=== PATIENT | female | born 1995 | race Caucasian/White ===

== ENCOUNTER 2016-12-22 19:47 | Emergency (ER) | payer OTHER ==
[2016-12-22 20:32] VITALS: TEMP 97.4
[2016-12-22] MEDS ORDERED: LIDOCAINE 4% CREAM 5 GM TUBE TOPICAL ONE (21:19)
--- NOTE | 2016-12-22 21:36 | ED ---
General Adult HPI - General Chief complaint: Recheck/Abnormal Lab/Rx Stated complaint: hemorrhoids Time Seen by Provider: 12/22/16 20:26 Source: patient Mode of arrival: ambulatory Limitations: no limitations - History of Present Illness Initial comments: Patient is a 21-year-old female, 33 weeks who presents with a chief complaint of rectal pain. Patient states that she has a history of hemorrhoids. He states that he has a sharp pain in her rectal area that is worse with standing, straining, and sitting. Alleviating factors are positional. Timing is constant. Patient denies any fevers, chills, nausea, vomiting. She denies any blood in her stool. - Related Data Home Medications Medication Instructions Recorded Confirmed FLUoxetine HCL [PROzac] 20 mg PO DAILY 12/06/16 12/22/16 Previous Rx's Medication Instructions Recorded Hydrocortisone Pr Cream 1 applic RECTAL BID #1 tube 12/22/16 [Proctosol-Hc 2.5%] Lidocaine 4% Cream [Lmx 4] 1 applic TOPICAL QID #1 kit 12/22/16 Allergies Allergy/AdvReac Type Severity Reaction Status Date / Time acetaminophen [From [place]] AdvReac Nausea & Verified 12/22/16 20:37 Vomiting/HALLUCINATIONS hydrocodone [From [place]] AdvReac Nausea & Verified 12/22/16 20:37 Vomiting/HALLUCINATIONS Review of Systems ROS Statement: Those systems with pertinent positive or pertinent negative responses have been documented in the HPI. ROS Other: All systems not noted in ROS Statement are negative. Constitutional: Denies: fever Eyes: Denies: vision change ENT: Denies: congestion Respiratory: Denies: cough Cardiovascular: Denies: chest pain Endocrine: Denies: fatigue Gastrointestinal: Reports: other (Rectal pain) Genitourinary: Denies: dysuria Skin: Denies: rash Neurological: Denies: headache Past Medical History Past Medical History: Asthma, GERD/Reflux, Osteoarthritis (OA) Additional Past Medical History / Comment(s): ibs, migraines History of Any Multi-Drug Resistant Organisms: None Reported Past Surgical History: Tonsillectomy Past Psychological History: Anxiety, Depression Smoking Status: Current every day smoker Past Alcohol Use History: None Reported Past Drug Use History: None Reported General Exam Limitations: no limitations General appearance: alert, in no apparent distress Head exam: Present: atraumatic, normocephalic Respiratory exam: Present: normal lung sounds bilaterally Cardiovascular Exam: Present: regular rate, normal rhythm, normal heart sounds GI/Abdominal exam: Present: soft, other (Patient hasn't appropriately gravid uterus). Absent: distended, tenderness Rectal exam: Present: hemorrhoids (Patient has a large thrombosed hemorrhoid at the 9 o'clock position) Neurological exam: Present: alert, oriented X3 Psychiatric exam: Present: normal affect, normal mood Skin exam: Present: warm, dry, intact Course Vital Signs 12/22/16 12/22/16 19:52 20:27 Temperature 98.9 F 97.4 F L Pulse Rate 114 H 109 H Respiratory 20 18 Rate Blood Pressure 116/72 114/65 O2 Sat by Pulse 98 98 Oximetry Medical Decision Making - Medical Decision Making Patient presents with a chief complaint of rectal pain. History and physical examination are consistent with a thrombosed hemorrhoid. I discussed treatment options with the patient, and offered medical management versus thrombectomy. At this time, patient would like to proceed with medical management. She was prescribed lidocaine ointment, and Proctosol ointment. She is instructed to use warm sitz baths. Patient is instructed to use Tylenol for pain, and to avoid direct pressure to the area. At this time, patient is stable for discharge, and follow-up with primary care. At this time, all questions are answered as my ability, patient was given explicit signs and symptoms that should prompt return visit to the emergency department. Disposition Clinical Impression: Hemorrhoids Disposition: HOME SELF-CARE Condition: Good Instructions: Hemorrhoids (ED) Prescriptions: Hydrocortisone Pr Cream [Proctosol-Hc 2.5%] 1 applic RECTAL BID #1 tube Lidocaine 4% Cream [Lmx 4] 1 applic TOPICAL QID #1 kit Referrals: Steph Cabezas MD [Primary Care Provider] - 1-2 days
[2016-12-22 21:47] VITALS: BP 107/66; PULSE 95; RESP 16
== END 2016-12-22 21:46 | disposition home or self-care (01) ==
LOC: EC 19:47
DX: O22.43 Hemorrhoids in pregnancy, third trimester (principal); O99.343 Other mental disorders complicating pregnancy, third trimester; F32.9 Major depressive disorder, single episode, unspecified; F41.9 Anxiety disorder, unspecified; O99.333 Smoking (tobacco) complicating pregnancy, third trimester; F17.200 Nicotine dependence, unspecified, uncomplicated; Z79.899 Other long term (current) drug therapy; Z88.5 Allergy status to narcotic agent; Z88.6 Allergy status to analgesic agent; Z3A.33 33 weeks gestation of pregnancy
CPT/HCPCS: 99282

== ENCOUNTER 2016-12-25 04:35 | Outpatient (CLI) | payer OTHER ==
[2016-12-25 05:11] LABS: Appearance,Urine Cloudy (Clear); Bilirubin,Urine Negative (Negative); Glucose,Urine (UA) Negative (Negative); Ketones,Urine Negative (Negative); Leukocyte Esterase,Urine Negative (Negative); Mucus,Urine Occasional /hpf; Nitrite,Urine Negative (Negative); PH, Urine 6.5 (5.0-8.0); Particle Count 6876; Protein,Urine 1+ (Negative); RBC,Urine 1 /hpf (0-5); Specific Gravity,Urine 1.027 (1.001-1.035); Squamous Epithelial Cell,Urine 11 /hpf (0-4); UA Billing (MACRO vs. MICRO) MICRO; WBC,Urine 2 /hpf (0-5)
[2016-12-25 07:41] VITALS: BP 120/69; PULSE 93; RESP 16; TEMP 97
--- NOTE | 2017-01-28 13:50 | P.MSEPDOC ---
Presenting Problems - Arrival Data Date of Arrival on Unit: 12/25/16 Time of Arrival on Unit: 04:35 Mode of Transport: Wheelchair - Complaint OB-Reason for Admission/Chief Complaint: Observation/Evaluation Comment: right sided pain 10/20 Medical History - Information : 1 Para: 0 Term: 0 : 0 Abortions: Spontaneous or Elective: 0 Number of Living Children: 0 - Gestational Age Gestational Age by SRUTHI (wks/days): 33 Weeks and 2 Days - History Complications: Smoker Review of Systems - Review of Systems Constitutional: No problems Breast: No problems ENT: No problems Cardiovascular: No problems Respiratory: No problems Gastrointestinal: No problems Genitourinary: No problems Musculoskeletal: No problems Neurological: No problems Skin: No problems Vital Signs - Temperature Temperature: 97 F Temperature Source: Tympanic - Pulse Right Brachial Pulse Rate: 93 Pulse Assessment Method: Automatic Cuff - Respirations Respiratory Rate: 16 Oxygen Delivery Method: Room Air O2 Sat by Pulse Oximetry: 99 - Blood Pressure Right Arm Blood Pressure: 120/69 Blood Pressure Mean: 86 Blood Pressure Source: Automatic Cuff Medical Screen Scoring (Pre) - Cervical Exam Dilation: Exam Deferred Effacement: Exam Deferred - Uterine Contractions Frequency: N/A Duration: N/A Intensity: N/A - Maternal Vital Signs Maternal Temperature: N/A Maternal Respirations: N/A - Maternal Trauma Maternal Trauma: N/A - Assessment Baseline FHR: 125 Heart Rate - NICHD Category: Category I (Normal) = 0 - Total Score Total Score (Pre): 0 - Level of Risk Level of Risk: Low (0-5) Physician Notification (Pre) - Physician Notified Physician Notified Date: 12/25/16 Physician Notified Time: 05:33 Spoke With: curtis New Order Received: Yes - Notification Comment Comment: d/c home, follow up as scheduled with Dr. Roque Disposition - Disposition OB Disposition: Discharge to home Discharge Date: 12/25/16 Discharge Time: 05:35 I agree with the RN Medical Screening Exam: Yes Risk & Benefit of care provided described in d/c instruction: Yes Diagnosis: RELATED CONDITIONS, UNSPECIFIED, THIRD TRIMESTER
== END 2016-12-25 05:35 | disposition home or self-care (01) ==
LOC: FBPOP 04:35
PROVIDERS: ATTEND Obstetrics & Gynecology
DX: O26.93 Pregnancy related conditions, unspecified, third trimester (principal); Z3A.33 33 weeks gestation of pregnancy
CPT/HCPCS: 59025; 81001; G0463; 99213

== ENCOUNTER 2017-01-24 06:08 | Inpatient (IN) | payer OTHER ==
[2017-01-24] MEDS ORDERED: OXYTOCIN 10 UNIT/ML 1 ML VIAL IM PRN (07:14)
[2017-01-24] MEDS ORDERED: METHYLERGONOVINE 0.2 MG/ML 1 ML AMP IM PRN (07:14)
[2017-01-24] MEDS ORDERED: LIDOCAINE 1% (PF) 10 MG/ML (30 ML SDV) SQ PRN (07:14)
[2017-01-24] MEDS ORDERED: TERBUTALINE 1 MG/ML VIAL SQ PRN (07:14)
[2017-01-24] MEDS ORDERED: CARBOPROST TROMETHAMINE 250 MCG/ML 1 ML AMP IM PRN (07:14)
[2017-01-24] MEDS ORDERED: OXYTOCIN 20 UNITS/1000 ML NS 1,000 ML IV SCH (07:15)
[2017-01-24] MEDS: LACTATED RINGERS 1,000 ML IV SCH ×2 (07:20→10:25)
[2017-01-24] MEDS ORDERED: fentaNYL (PF) 50 MCG/ML 5 ML AMP ONE (07:45)
[2017-01-24] MEDS ORDERED: SODIUM CHLORIDE 0.9% 100 ML BAG ONE (07:45)
[2017-01-24] MEDS ORDERED: BUPIVACAINE (PF) 0.25% 30 ML VIAL ONE (07:45)
[2017-01-24 08:02] LABS: Basophils # (A) 0.1 k/uL (0-0.2); Basophils % (A) 1 %; CH 32.6; CHCM 33.3; Eosinophils # (A) 0.5 k/uL (0-0.7); Eosinophils % (A) 2 %; HCT 36.4 % (34.0-46.0); HDW 2.72; HGB 11.8 gm/dL (11.4-16.0); Luc # (Auto) 0.57; Luc % (Auto) 3; Lymphocytes # (A) 3.9 k/uL (1.0-4.8); Lymphocytes % (A) 17 %; MCH 31.9 pg (25.0-35.0); MCHC 32.3 g/dL (31.0-37.0); MCV 98.7 fL (80.0-100.0); Mean Platelet Volume 9.9; Monocytes # (A) 1.6 k/uL (0-1.0); Monocytes % (A) 7 %; Neutrophils # (A) 16.2 k/uL (1.3-7.7); Neutrophils % (A) 71 %; RBC 3.69 m/uL (3.80-5.40); RDW 14.1 % (11.5-15.5); WBC 22.8 k/uL (3.8-10.6); WBC (Perox) 23.26
[2017-01-24] MEDS ORDERED: BUPIVACAINE (PF) 0.25% 25 ML, fentaNYL (PF) 200 MCG in SODIUM CHLORIDE 0.9% 71 ML EPIDURAL ONE (08:05)
--- NOTE | 2017-01-24 09:12 | P.HPOB ---
History of Present Illness H&P Date: 01/24/17 This is a 21-year-old white female 1 para 0 EDC 02/10/2017 at 37-4/7 weeks' gestation. Patient presented to labor and delivery with strong regular uterine contractions, her water broke in the triage area, clear fluid at 0649 hours. Fetus is been active throughout the . Past medical history significant for acid reflux, anxiety, arthritis, asthma, chronic constipation and a benign bowel mass, depression, irritable bowel syndrome, migraine headaches. Past surgical history colonoscopy with Dr. waddell. Tonsillectomy. [place] teeth extracted. Current medications Colace 100 mg tablets once daily, vitamins daily, MiraLAX 17 g once daily, Zoloft 50 mg once daily. ALLERGIES include [place] to which reports chronic migraines. Family history significant for acid reflux, arthritis, autism, bipolar disorder , endometriosis, fibromyalgia, cardiac issues unspecified, hypercholesterolemia , hypertension, height her glycemia, osteoporosis, stroke. Social history patient is currently single, father of the baby is not her ex spells. She smokes one half pack per day tobacco, denies alcohol or drug use. history blood type is A+, rubella status immune. VDRL testing, urine culture, gonorrhea and chlamydia cultures, HIV testing, hepatitis B surface antigen, [place] strep cultures all negative. Pap smear revealing low-grade change. On exam this is a pleasant young female, 5 foot 1 inch, 163 pounds, vital signs are stable and patient is afebrile. The general physical exam is within normal limits. Chest is clear in all camacho. Extremities reveal no edema. Obvious fluid is noted on the perineal body, clear and non-malodorous. Cervix is currently 5-6 cm dilated, 100% effaced, -1 station, vertex presentation. heart rate is consistent with reactive NST. Impression: 37-4/7 weeks intrauterine , here in active spontaneous labor. All signs currently reassuring. Plan: Close maternal and surveillance. Epidural has been placed per her request. Anticipate normal spontaneous vaginal delivery. Review of Systems Negative except as in HPI Past Medical History Past Medical History: Asthma, GERD/Reflux, Osteoarthritis (OA) Additional Past Medical History / Comment(s): ibs, migraines History of Any Multi-Drug Resistant Organisms: None Reported Past Surgical History: Tonsillectomy Past Anesthesia/Blood Transfusion Reactions: No Reported Reaction Past Psychological History: Anxiety, Depression Smoking Status: Current every day smoker Past Alcohol Use History: None Reported Past Drug Use History: None Reported - Past Family History Sister(s) Family Medical History: Fibromyalgia Medications and Allergies Home Medications Medication Instructions Recorded Confirmed Type No Known Home Medications [No 01/23/17 01/24/17 History Known Home Medications] Allergies Allergy/AdvReac Type Severity Reaction Status Date / Time hydrocodone [From [place]] AdvReac Nausea & Verified 01/24/17 06:10 Vomiting/HALLUCINATIONS Exam - Vital Signs Vital signs: Vital Signs Temp Pulse Resp BP Pulse Ox 01/24/17 06:11 97.4 F L 96 16 122/83 100 Intake and Output 01/23/17 01/24/17 01/24/17 22:59 06:59 14:59 Other: Weight 73.936 kg 73.936 kg Patient Weight 01/25/17 06:59 Weight 73.936 kg See dictation, please Results Result Diagrams: 01/24/17 07:15 Abnormal Lab Results - Last 24 Hours (Table) 01/24/17 Range/Units 07:15 WBC 22.8 H (3.8-10.6) k/uL RBC 3.69 L (3.80-5.40) m/uL Neutrophils # 16.2 H (1.3-7.7) k/uL Monocytes # 1.6 H (0-1.0) k/uL Assessment and Plan Plan: Close maternal and surveillance. Anticipate normal spontaneous vaginal delivery. Time with Patient: Less than 30
[2017-01-24 09:46] VITALS: BMI 30.8
[2017-01-24] MEDS ORDERED: WITCH HAZEL 1 EACH MED..PAD TOPICAL PRN (11:30)
[2017-01-24] MEDS ORDERED: BENZOCAINE/MENTHOL SPRAY 1 GM/SPRAY AEROSOL TOPICAL PRN (11:30)
[2017-01-24] MEDS ORDERED: diphenhydrAMINE ELIXIR 25 MG/10 ML CUP PO PRN (11:30)
[2017-01-24] MEDS ORDERED: LANOLIN CREAM 5 GM TUBE TOPICAL PRN (11:30)
[2017-01-24] MEDS ORDERED: ACETAMINOPHEN TAB 325 MG TAB PO PRN (11:30)
[2017-01-24] MEDS ORDERED: diphenhydrAMINE 50 MG/ML 1 ML VIAL IVP PRN ×2 (11:30)
[2017-01-24] MEDS ORDERED: HYDROCORTISONE 2.5% RECTAL CREAM 30 GM TUBE RECTAL PRN (11:30)
[2017-01-24] MEDS ORDERED: diphenhydrAMINE 25 MG CAP PO PRN (11:30)
[2017-01-24] MEDS ORDERED: ZOLPIDEM 5 MG TAB PO PRN (11:30)
[2017-01-24] MEDS ORDERED: SIMETHICONE 80 MG CHEWABLE PO PRN (11:30)
[2017-01-24] MEDS ORDERED: diphenhydrAMINE 50 MG CAP PO PRN (11:30)
--- NOTE | 2017-01-24 11:30 | P.PROBDLV ---
Vaginal Delivery Note - . Vaginal Delivery Note: This is a 21-year-old white female 1 para 0 EDC 02/10/2017 at 37-4/7 weeks' gestation. Patient presented with spontaneous amniorrhexis, in active labor, clear fluid. was essentially unremarkable, group B strep cultures negative, rubella status immune, blood type A+. Please see my dictated history and physical for details. Epidural was requested and placed per the anesthesia staff. Patient progressed well through the first stage of labor was judged to be completely dilated at 1105 hrs. She began the second stage of labor at that time. The perineal body was prepped and draped in usual sterile fashion. With excellent maternal expulsive efforts the 's head delivered occiput anterior and restituted accordingly. There was no nuchal cord noted. The right or anterior shoulder was gently delivered from underneath the pubic symphysis at which time the oropharynx, nasopharynx, and external nares were bulb suctioned on the perineal body. Patient was officially delivered of a liveborn male infant at 1112 hours. Umbilical cord was doubly clamped and ligated, he was handed to waiting nurses for evaluation where scores of 8 and 9 at one and 5 minutes respectively were given. The placenta delivered spontaneously, it was inspected and noted to be intact with trivascular cord at 1115 hours. The uterus is then massaged. Inspection of the cervix, vagina, perineum and periurethral areas revealed a superficial perineal laceration, no bleeding, no stitches were deemed necessary. Fundus is firm and in the midline, symmetric and 18 week size upon completion of delivery. Infant weighs 6 lbs. 0 oz. or 2730 g. She is requesting circumcision for her infant son.
[2017-01-24] MEDS: IBUPROFEN 600 MG TAB PO PRN ×2 (11:53→18:18)
[2017-01-24] MEDS ORDERED: NICOTINE 21MG/24HR PATCH TRANSDERM STA (14:08)
[2017-01-24] MEDS: Acetaminophen-Codeine 300-30mg TAB PO PRN ×2 (16:13→20:16)
[2017-01-24] MEDS: SENNOSIDES-DOCUSATE SODIUM 1 EACH TAB PO SCH (20:16)
[2017-01-24] MEDS: FAMOTIDINE 20 MG TAB PO SCH (22:27)
[2017-01-25] MEDS ORDERED: SENNOSIDES-DOCUSATE SODIUM 1 EACH TAB PO ONE (00:30)
[2017-01-25] MEDS ORDERED: IBUPROFEN 600 MG TAB PO ONE (00:30)
[2017-01-25] MEDS: Acetaminophen-Codeine 300-30mg TAB PO PRN ×2 (04:25→13:55)
[2017-01-25] MEDS: IBUPROFEN 600 MG TAB PO PRN (08:36)
[2017-01-25] MEDS: SENNOSIDES-DOCUSATE SODIUM 1 EACH TAB PO SCH (08:36)
--- NOTE | 2017-01-25 09:43 | P.DS ---
Providers Date of admission: 01/24/17 07:02 Expected date of discharge: 01/25/17 Attending physician: Consuelo Roque [facility] Course: This is a 21-year-old white female 1 para 0 EDC 02/10/2017 at 37-4/7 weeks' gestation. Patient presented with spontaneous amniorrhexis, clear fluid , in active early labor. was remarkable for group B strep cultures negative, rubella status immune, blood type A positive. Please see dictated history and physical for details. Patient progressed well through labor with the aid of an epidural. She went on to deliver spontaneously a liveborn male , scores 8 and 9 at one and 5 minutes respectively. Infant weighed 2730 g, or 6 lbs. 0 oz. No lacerations on the perineal body needing repair. Estimated blood loss 300 mL' s. Please see dictated delivery note for details. This morning the patient is doing well. She is voiding, ambulating and passing flatus without difficulty. Vital signs are stable and she is afebrile. has been circumcised without issue. Minimal lochia rubra, perineal body clean and dry, fundus firm, midline, symmetric, 18 week size. Well controlled pain with ibuprofen. Patient is being discharged home today in very good condition. She will follow- up with me in the office in 6 weeks. I have reminded her no intercourse, tampons or douching. She will use [id number] ibuprofen products, Motrin 200 mg, 3 every 6 hours as needed. I have restarted her on her Prozac 10 mg a day. We have discussed briefly options for contraception, and these will be reviewed more thoroughly in the office. She will call with any fevers shakes or chills, foul smelling or copious lochia, with the passage of large blood clots, with any pain not alleviated by ibuprofen, or indeed with any concerns. Patient Condition at Discharge: Good Plan - Discharge Summary Discharge Rx Participant: Yes New Discharge Prescriptions: No Action No Known Home Medications [No Known Home Medications] Discharge Medication List No Known Home Medications [No Known Home Medications] 01/23/17 [History] Follow up Appointment(s)/Referral(s): Consuelo Roque MD [STAFF PHYSICIAN] - 6 Weeks Discharge Disposition: HOME SELF-CARE
[2017-01-25 10:05] VITALS: BP 108/63; PULSE 99; RESP 16; TEMP 97.9
[2017-01-25] MEDS: FAMOTIDINE 20 MG TAB PO SCH (12:08)
== END 2017-01-25 14:36 | disposition home or self-care (01) | DRG 560 ==
LOC: FBPOP 06:08 → 4FBP 07:02
PROVIDERS: ADMIT Obstetrics & Gynecology; ATTEND Obstetrics & Gynecology
PROC: 3E0R3BZ Introduction of Anesthetic Agent into Spinal Canal, Percutaneous Approach (ICD-10-PCS; principal; 2017-01-24)
PROC: 10E0XZZ Delivery of Products of Conception, External Approach (ICD-10-PCS; principal; 2017-01-24)
PROC: 00HU33Z Insertion of Infusion Device into Spinal Canal, Percutaneous Approach (ICD-10-PCS; principal; 2017-01-24)
DX: O70.0 First degree perineal laceration during delivery (principal); O99.354 Diseases of the nervous system complicating childbirth; O99.334 Smoking (tobacco) complicating childbirth; O99.62 Diseases of the digestive system complicating childbirth; O99.52 Diseases of the respiratory system complicating childbirth; O99.344 Other mental disorders complicating childbirth; Z37.0 Single live birth; Z3A.37 37 weeks gestation of pregnancy; G43.909 Migraine, unspecified, not intractable, without status migrainosus; K21.9 Gastro-esophageal reflux disease without esophagitis; K58.9 Irritable bowel syndrome, unspecified; F17.210 Nicotine dependence, cigarettes, uncomplicated; J45.909 Unspecified asthma, uncomplicated; K59.09 Other constipation; M19.91 Primary osteoarthritis, unspecified site; F32.9 Major depressive disorder, single episode, unspecified; Z88.5 Allergy status to narcotic agent; Z79.899 Other long term (current) drug therapy
CPT/HCPCS: 59025; 84112; 85025; 88307; 99213

== ENCOUNTER 2017-04-17 07:47 | Day surgery (SDC) | payer OTHER ==
[2017-04-17 08:08] VITALS: TEMP 98.2
[2017-04-17] MEDS ORDERED: LACTATED RINGERS 1,000 ML IV ONE (08:09)
[2017-04-17] MEDS ORDERED: LIDOCAINE 1% INJ 10MG/ML (20 ML MDV) ONE (08:28)
[2017-04-17] MEDS ORDERED: PROPOFOL 10 MG/ML 20 ML VIAL IV ONE (08:28)
[2017-04-17] MEDS ORDERED: MIDAZOLAM 2 MG/2 ML VIAL ONE (08:28)
[2017-04-17 09:15] VITALS: RESP 16
--- NOTE | 2017-04-17 09:16 | P.PCN ---
Date of Procedure: 04/17/17 Procedure(s) Performed: Procedures: 1. Esophagogastroduodenoscopy and biopsy. 2. Colonoscopy and biopsy. Preoperative diagnosis: Chronic reflux symptoms and change in bowel habits and history of irritable bowel syndrome. Postoperative diagnosis: 1. Small sliding hiatal hernia with no obvious esophagitis or complicated reflux disease. 2. Mild antral gastritis. 3. Multiple biopsies obtained from the duodenum, antrum and esophagus. 4. Normal colon and terminal ileum. 5. Multiple biopsies obtained from the terminal ileum and randomly from the colon. Preparation: HalfLytely prep. Sedation: Was provided by anesthesia. Brief clinical history: The patient is a 21-year-old female who is scheduled for this evaluation because of chronic reflux symptoms requiring therapy as well as chronic history of irritable bowel syndrome with recent change in bowel habits more in the form of diarrhea. This evaluation is to assess for esophagitis, complicated reflux disease or inflammatory bowel disease. Procedure: With the patient on her left lateral decubitus position and after informed consent and adequate sedation, I passed the Olympus-GIF 160 video upper endoscope through the cricopharyngeus down the esophagus. GE junction was around 35 cm from the incisors and there was a 1-2 cm sliding hiatal hernia but no obvious esophagitis or complicated reflux disease. The endoscope was then passed into the stomach which was insufflated with air and inspected in detail including the retroflex view in the cardia. There was some mottling and erythema in the antrum but no ulcers or erosions. Pyloric channel, duodenal bulb, post bulbar area and descending duodenum appeared within normal limits. Because of her symptoms, I obtained biopsies from the duodenum, antrum and esophagus then the endoscope was withdrawn and I proceeded to do colonoscopy. Perianal area did not show any fissures or fistulas. The were no masses felt on digital rectal examination. The Olympus CFQ 160L video colonoscope was then inserted in the rectum in the usual fashion and advanced to the cecum. I intubated the ileocecal valve and examined the terminal ileum. Terminal ileum and colon appeared healthy with no edema, erythema, friability, ulceration, exudation or spontaneous bleeding. No polyps or tumors were seen or any obvious diverticular disease. I retroflexed the endoscope in the rectum before the endoscope was withdrawn. I also obtained biopsies from the terminal ileum and randomly from the colon. The patient tolerated the procedure well. Plan: The patient was reassured. Will await pathology results. Further plans will be made based on her course and biopsy results.
[2017-04-17] MEDS ORDERED: LACTATED RINGERS 1,000 ML IV SCH (09:19)
[2017-04-17] MEDS ORDERED: LIDOCAINE 1% 20 ML VIAL (10MG/ML) FOR IV START INTRADERMA PRN (09:19)
[2017-04-17 09:33] VITALS: BP 116/68; PULSE 74
== END 2017-04-17 10:11 | disposition home or self-care (01) ==
LOC: ORWHC2ENDO 07:47
DX: K21.0 Gastro-esophageal reflux disease with esophagitis (principal); K29.50 Unspecified chronic gastritis without bleeding; K44.9 Diaphragmatic hernia without obstruction or gangrene; K58.9 Irritable bowel syndrome, unspecified; J45.909 Unspecified asthma, uncomplicated; F32.9 Major depressive disorder, single episode, unspecified; F17.210 Nicotine dependence, cigarettes, uncomplicated; Z88.5 Allergy status to narcotic agent; Z79.899 Other long term (current) drug therapy
CPT/HCPCS: 43239; 45380; 81025; 88305; J2250; J2001; J2704

== ENCOUNTER → 2017-10-03 | Outpatient (CLI) | payer OTHER ==
--- NOTE | 2017-10-20 14:45 | EM ---
EVENT MONITOR 14 DAY EVENT MONITOR: REFERRING: Dr. Cabezas. DATE OF SERVICE: October 03, 2017. The patient was monitored for 14 days. The baseline rhythm appeared to be a sinus mechanism. During these 14 days the patient did have multiple episodes of sinus tachycardia with a heart rate ranging between 130 to 140 beats per minute. No evidence of any sinus bradycardia noted. No evidence of any sinus pause or sinus arrest noted. No evidence of any advanced AV block. CONCLUSION: 1. This is a 14 days event monitor. 2. Sinus rhythm as a baseline mechanism. 3. The patient did have multiple episodes of sinus tachycardia and during these episodes, the patient was experiencing symptoms of irregular heart rhythm and fluttering in the chest as well as some symptoms of nausea and vomiting as well as some symptoms of chest pain and chest discomfort. 4. No evidence of any significant sinus bradycardia noted. 5. No evidence of any arrhythmia in the term of atrial fibrillation or atrial flutter noted. 6. No evidence of sinus pause or sinus arrest noted. MMODL / IJN: [id number] /
== END | disposition home or self-care (01) ==
LOC: RADECHMAIN 11:50
PROVIDERS: ATTEND Family Medicine
DX: R00.0 Tachycardia, unspecified (principal); I49.8 Other specified cardiac arrhythmias; R11.2 Nausea with vomiting, unspecified; R07.89 Other chest pain
CPT/HCPCS: 93270; 93271

== ENCOUNTER 2017-10-19 08:57 | Inpatient (IN) | payer OTHER ==
[2017-10-19] MEDS ORDERED: MORPHINE SULFATE 2 MG/ML SYRINGE IVP ONE (09:25)
[2017-10-19] MEDS ORDERED: SODIUM CHLORIDE 0.9% 1,000 ML IV ONE (09:25)
--- NOTE | 2017-10-19 09:29 | ED ---
Abdominal Pain HPI - General Source: patient, EMS, RN notes reviewed, old records reviewed Mode of arrival: EMS Limitations: no limitations <Lyubov Aviles - Last Filed: 10/19/17 13:09> <Lux Allison - Last Filed: 10/19/17 13:29> - General Chief Complaint: Abdominal Pain Stated Complaint: ABD PAIN Time Seen by Provider: 10/19/17 09:04 - History of Present Illness Initial Comments: This 20-year-old female presents emergency department today with chief complaint of severe sudden onset of suprapubic and bilateral lower quadrant pain after having intercourse. Patient was initially seen at [facility] and transferred here for further evaluation. Patient had a computed tomography scan and ultrasound as well as laboratory obtained. Lab work shows elevation of white blood cell count of 20,000 with lymphocytes 13.6. Her urine test is negative. Patient ultrasound showed a left ovarian cyst measuring 3 cm. Is also difficulty contacting the blood flow in the right ovary. There is normal size and unremarkable morphology there is some mixed venous and arterial flow ruling against ovarian torsion. IUD was normal. The CT showed evidence of free fluid in the abdomen and pelvis. There is a large left ovarian cyst. Consider possibility of fracture ruptured ectopic and PID. The appendix was not seen. Appendicitis is not entirely excluded. While in the emergency department there she was treated for PID due to the severe cervical motion tenderness an abnormal CAT scan findings. Patient was given Rocephin, discharged with doxycycline and Flagyl. Her Trichomonas test was negative. She reports that she is always been having some vaginal discharge. She is not currently concern for sexually transmitted infection. Her DRIER TRANSFER CAR OPERATOR is Dr. Jack. She is a female. Patient describes the pain as sharp to the right and left lower abdominal area 10 out of 10. She's had no fever. She did have some pain with urination. Her urinalysis was negative for infection. (Lyubov Aviles) - Related Data Home Medications Medication Instructions Recorded Confirmed Albuterol Inhaler [Ventolin Hfa 2 puff INHALATION RT-Q4H PRN 04/17/17 10/19/17 Inhaler] ARIPiprazole [Abilify] 2 mg PO DAILY 10/19/17 10/19/17 Ibuprofen [Motrin Ib] 400 mg PO Q6H PRN 10/19/17 10/19/17 Pantoprazole [Protonix] 40 mg PO DAILY 10/19/17 10/19/17 Propranolol HCl [Propranolol HCl 60 mg PO DAILY 10/19/17 10/19/17 ER] Sertraline HCl [Zoloft] 100 mg PO DAILY 10/19/17 10/19/17 Allergies Allergy/AdvReac Type Severity Reaction Status Date / Time hydrocodone [From [place]] AdvReac Nausea & Verified 10/19/17 09:34 Vomiting/HALLUCINATIONS Review of Systems ROS Other: All systems not noted in ROS Statement are negative. <Lyubov Aviles - Last Filed: 10/19/17 13:09> ROS Other: All systems not noted in ROS Statement are negative. <Lux Allison - Last Filed: 10/19/17 13:29> ROS Statement: Those systems with pertinent positive or pertinent negative responses have been documented in the HPI. Past Medical History Past Medical History: Asthma, GERD/Reflux, Osteoarthritis (OA) Additional Past Medical History / Comment(s): ibs, migraines History of Any Multi-Drug Resistant Organisms: None Reported Past Surgical History: Tonsillectomy Past Anesthesia/Blood Transfusion Reactions: No Reported Reaction Past Psychological History: Anxiety, Depression Smoking Status: Current every day smoker Past Alcohol Use History: None Reported Past Drug Use History: None Reported - Past Family History Sister(s) Family Medical History: Fibromyalgia <Lyubov Aviles - Last Filed: 10/19/17 13:09> General Exam Limitations: no limitations General appearance: alert, in no apparent distress Head exam: Present: atraumatic, normocephalic, normal inspection Eye exam: Present: normal appearance, PERRL, EOMI. Absent: scleral icterus, conjunctival injection, periorbital swelling ENT exam: Present: normal exam, mucous membranes moist Neck exam: Present: normal inspection. Absent: tenderness, meningismus, lymphadenopathy Respiratory exam: Present: normal lung sounds bilaterally. Absent: respiratory distress, wheezes, rales, rhonchi, stridor Cardiovascular Exam: Present: regular rate, normal rhythm, normal heart sounds. Absent: systolic murmur, diastolic murmur, rubs, gallop, clicks GI/Abdominal exam: Present: soft, tenderness (severe tenderness of RLQ and LLQ ) , normal bowel sounds. Absent: distended, guarding, rebound, rigid Extremities exam: Present: normal inspection, full ROM, normal capillary refill. Absent: tenderness, pedal edema, joint swelling, calf tenderness Back exam: Present: normal inspection Neurological exam: Present: alert, oriented X3, CN II-XII intact Psychiatric exam: Present: normal affect, normal mood Skin exam: Present: warm, dry, intact, normal color. Absent: rash <Lyubov Aviles - Last Filed: 10/19/17 13:09> <Lux Allison - Last Filed: 10/19/17 13:29> - General Exam Comments Initial Comments: 22-year-old female. Alert and oriented. No significant distress. (Lyubov Aviles) Course <Lyubov Aviles - Last Filed: 10/19/17 13:09> <Lux Allison - Last Filed: 10/19/17 13:29> Vital Signs 10/19/17 10/19/17 10/19/17 08:58 11:07 12:49 Temperature 98.2 F Pulse Rate 67 73 72 Respiratory 18 16 16 Rate Blood Pressure 98/55 100/59 95/57 O2 Sat by Pulse 100 100 98 Oximetry - Reevaluation(s) Reevaluation #1: 10/19/17 12:29 Patient was evaluated by Dr. Jack. Due to severe pelvic tenderness she would like to admit the Patient will start on antibiotic. (Lyubov Aviles) Reevaluation #2: 10/19/17 13:28 PA supervision: I personally do a [id number] evaluation the patient she did demonstrate lower abdominal tenderness palpation with minimal evidence of guarding in vaginal exam was deferred to Dr. Roque who did come in to see the patient. The patient will be admitted with general surgical consultation I did discuss the case with Dr. Larry who is on trauma call today. The patient will receive a CT with oral contrast. We did discuss also that Dr. Roque or Dr. Motta would like to be consulted after the examination by Dr. Larry. I do agree with the assessment and plan as well as interpretation of lab values and imaging unless otherwise indicated. (Lux Allison) Medical Decision Making - Radiology Data Radiology results: report reviewed <Lyubov Aviles - Last Filed: 10/19/17 13:09> <Lux Allison - Last Filed: 10/19/17 13:29> - Medical Decision Making This Patient is 22-year-old female transferred from [facility] for questionable ovarian torsion and severe abdominal pain. She had ultrasounds which were inconclusive at [facility]. We repeated the ultrasound today which show a large fluid collection within the abdomen. Uncertain etiology. She does have elevated white blood cell count of 20,000. She has no fever or chills this time. All of her pain had a sudden onset after intercourse today. Patient was evaluated by Dr. mendez and Dr. Allison. Dr. Roque recommends to severe abdominal pain and tenderness to start the Patient on IV antibiotics, Rocephin and Flagyl. Her Trichomonas test was negative at this time. Chlamydia and gonorrhea culture are pending at [facility]. We did start blood cultures prior to starting antibiotic. Patient will be admitted at this time under Dr. Zhong with consults to Dr. Roque and surgery. We did upload her previous computed tomography scan and previous ultrasound to [employer]. (Lyubov Aviles) - Lab Data Lab Results 10/19/17 Range/Units 12:35 Plasma Lactic Acid Meek <0.5 L (0.7-2.0) mmol/L - Radiology Data Some free fluid in the pelvis more hyperdense fullness the pulled the cul-de- sac on CT which represents complex or an ultrasound. Poor separation of ovaries or uterus on the CT and ultrasound with curvilinear sure soft tissue thickening on CT in the pericolic gutter. An etiology uncertain. Consider endometriosis cannot exclude blood product. Correlation with more specific history. Correlation with outside reports recommended. Consider laparoscopic evaluation. (Lyubov Aviles) Disposition Is patient prescribed a controlled substance at d/c from ED?: No Time of Disposition: 13:12 <Lyubov Aviles - Last Filed: 10/19/17 13:09> <Lux Allison - Last Filed: 10/19/17 13:29> Clinical Impression: Abdominal pain, Cervical motion tenderness, Leukocytosis Disposition: HOME SELF-CARE Condition: Good Referrals: Steph Cabezas MD [Primary Care Provider] - 1-2 days Addendum entered and electronically signed by Lyubov Aviles PA-C 10/19/17 13 :14: Dr. Larry would like the Patient have a CT abdomen and pelvis with oral contrast.
--- NOTE | 2017-10-19 10:59 | US ---
EXAMINATION TYPE: US transvaginal DATE OF EXAM: 10/19/2017 COMPARISON: Outside CT and ultrasound from earlier today CLINICAL HISTORY: Pain. TECHNIQUE: Transvaginal : Date of LMP: 09/24/17 EXAM MEASUREMENTS: Uterus: 7.6 x 3.8 x 2.6 cm Endometrial Stripe: 1.2 cm Right Ovary: 2.6 x 1.5 x 1.7 cm Left Ovary: 5.4 x 3.8 x 3.7 cm 1. Uterus: Anteverted, wnl, IUD appears in place 2. Endometrium: wnl 3. Right Ovary: wnl 4. Left Ovary: cyst measuring 3.0 x2.8 x 3.0cm Spectral, color and waveform doppler imaging shows good arterial and venous flow within the ovaries . 5. Bilateral Adnexa: ff in pocket seen abdominally measuring 7.6 x 3.9 x 2.9cm 6. Posterior cul-de-sac: complex mass like structure measured at 6.7 x 3.3 x 5.8cm this does extend into the area posterior to uterus and may be larger in size, this area does not appear vascular. Transvaginal pelvic ultrasound shows central IUD felt satisfactory in position. Labeled right ovary is normal in size. Left ovary is asymmetrically enlarged with simple appearing 3. 0 cm cyst. Pelvic cul-de-sac shows heterogeneous hyperechoic area with increased through transmission . Some free fluid is seen in the right adnexa towards end of study. IMPRESSION: Some free fluid in pelvis with more hyperdense fullness pelvic cul-de-sac on CT correlate s with complex area on ultrasound. There is poor separation of ovaries from uterus on CT and ultrasou nd with suspicious curvilinear soft tissue thickening on CT extending into the left paracolic gutter of uncertain clinical significance. Etiology uncertain. Consider endometriosis, cannot exclude blood product. Clinical correlation with more specific history is advised as only generalized pain is given . Correlation with outside reports recommended as they are not provided. Consider laparoscopic evalua tion based on above.
[2017-10-19] MEDS ORDERED: metroNIDAZOLE-NS PMX 500 MG in SALINE 1 100ML.BAG IVPB STA (12:16)
[2017-10-19] MEDS ORDERED: cefTRIAXone IN SWFI 1,000 MG/10 ML SYRINGE IVP STA (12:16)
[2017-10-19] MEDS ORDERED: KETOROLAC 30 MG/ML 1 ML VIAL IVP STA (12:57)
[2017-10-19] MEDS ORDERED: ONDANSETRON 4 MG/2 ML VIAL IVP STA (12:57)
[2017-10-19] MEDS ORDERED: IOPAMIDOL-300 CONTRAST 30 ML VIAL (ORAL USE) PO PRN (13:13)
[2017-10-19] MEDS ORDERED: NALOXONE 0.4 MG/ML 1 ML VIAL IV PRN (13:14)
[2017-10-19] MEDS ORDERED: MORPHINE SULFATE 4 MG/ML SYRINGE IV PRN (13:14)
--- NOTE | 2017-10-19 13:46 | ED ---
Medical Decision Making - Lab Data Lab Results 10/19/17 Range/Units 12:35 Plasma Lactic Acid Meek <0.5 L (0.7-2.0) mmol/L Disposition Clinical Impression: Abdominal pain, Cervical motion tenderness, Leukocytosis Disposition: ADMITTED IP TO THIS HOSP Condition: Good Referrals: Steph Cabezas MD [Primary Care Provider] - 1-2 days
--- NOTE | 2017-10-19 13:47 | HP ---
HISTORY AND PHYSICAL This is a 22-year-old white female 2, para 1-0-1-1, LMP 09/24/2017, who presented with history of lower abdominal pain which began at 12:30 this morning at the time of intercourse. She denies any vaginal bleeding. She denies any change in vaginal discharge, no odor, no urinary symptoms. She feels a fullness and heaviness across the entire lower pelvis and abdomen. She was initially seen at [facility] but transferred here. She had a mild amount of nausea, no emesis. She admits to chills at the time of significant pain. PAST MEDICAL HISTORY: Essentially negative. PAST SURGICAL HISTORY: Stye removal of the eye, tonsillectomy as a child, left great toenail removed 10 days ago with sutures in place. ALLERGIES: ADHESIVE to which reports a rash and NORCO to which reports migraine headaches. CURRENT MEDICATIONS: Zoloft 100 mg daily, Abilify daily, Protonix 40 mg daily. SOCIAL HISTORY: The patient is single, she is monogamous and her partner states that he is as well. She denies alcohol or drug use. She does smoke tobacco 1 pack per day for approximately 7 years. FAMILY HISTORY: Significant for endometriosis in the patient's mother. MOSS PICKER HISTORY: Significant for menarche age 10, 28-30 day cycles, 5-7 days of light to medium duration. She did have a ParaGard IUD placed in February of 2017. She had a Pap smear with low-grade changes in March of this year. She denies gonorrhea or chlamydia. PAST OBSTETRIC HISTORY: Normal spontaneous vaginal delivery 2016 of live-born male , 6 pounds, unremarkable. EXAM: This is a pleasant white female. She is 5 feet 1 inch, 149 pounds, blood pressure 100/59, pulse 76, temperature 98.1. HEENT exam reveals good dentition, no thyromegaly, no cervical lymphadenopathy. CHEST: Clear to auscultation in all camacho anteriorly and posteriorly. Cardiac exam reveals regular rate and rhythm with no murmur, click, or rub. Abdomen is softly distended, there is rebound and guarding noted consistent with intraperitoneal fluid. There are no obvious masses to palpation. However, the patient is tender throughout both lower abdominal quadrants and . Extremities reveal no edema, there are good peripheral pulses. On pelvic exam, external genitalia is well estrogenized. There is no unusual odor or discharge, gonorrhea and chlamydia cultures have been performed. The cervix is long and closed, IUD strings are palpated. There is a fair amount of pressure noted through the posterior cul-de-sac with fluid tenting into the vagina. The adnexa are difficult to assess secondary to pain. The uterus is mobile, smooth and small and in the midline. LABS: Hemoglobin 12.9, hematocrit 39.3, white count 64437, platelets 170,000. Beta HCG is negative. Ultrasound reveals normal uterus, 7.6 x 3.8 x 2.3 cm with a well-seated IUD noted. Endometrial stripe normal at 1.2 cm. Right ovary normal at 2.6 x 1.5 x 1.7 cm. Left ovary with a small 3 cm cyst, otherwise normal at 5.4 x 3.8 x 3.7 cm. There is a free fluid pocket noted abdominally measuring 7.6 x 3.9 x 2.9 cm, and a more complex appearing structure posteriorly in the area of the cul-de-sac measuring 6.7 x 3.3 x 5.8 cm. The Doppler imaging reveals good arterial and venous flow to the ovaries. IMPRESSION: Diffuse pelvic pain. IUD well-seated. Sonographic evidence of free fluid in the abdomen and likely cul-de-sac. PLAN: We will continue Rocephin and Flagyl has started. The patient will be kept n.p.o. I would like general surgery consultation, diagnostic laparoscopy is a strong consideration to identify origin of this free pelvic fluid. I am not convinced that this is MOSS PICKER in etiology, but we will follow. I am asking Dr. Allison to have General Surgery call me directly for direct communication and planning. MMODL / IJN: [id number] /
[2017-10-19] MEDS ORDERED: TEMAZEPAM 15 MG CAP PO PRN (13:59)
[2017-10-19] MEDS ORDERED: ALBUTEROL NEBULIZED 2.5 MG/3 ML INHALATION PRN (14:00)
--- NOTE | 2017-10-19 14:56 | HP ---
HISTORY AND PHYSICAL DATE OF SERVICE: 10/19/2017 CHIEF COMPLAINT: Abdominal pain. HISTORY OF PRESENT ILLNESS: This is a 22-year-old woman with a past medical history of GERD, asthma, DJD, irritable bowel syndrome, migraines, anxiety, depression, being followed by Dr. Cabezas in the outpatient setting. Presented to [facility] with the complaints of abdominal pain. The patient reports the pain in the lower part of the abdomen, suprapubic area which is radiating to the back also. Evaluation revealed leukocytosis and a left ovarian cyst about [address] showed evidence of free fluid in the abdomen and pelvis and the large left ovarian cyst was also noted. The appendix was not visualized. The patient was evaluated by Dr. Roque and recommended admission at this time. Surgical evaluation has been sought also. Empiric antibiotics initiated. There is no history of any fever, rigors or chills. No history of headache or loss of consciousness, seizures. PAST MEDICAL HISTORY: History of asthma, GERD, DJD, history of anxiety and depression. MEDICATIONS: Prior to admission include the home medications are: 1. Zoloft 100 mg p.o. daily. 2. Propranolol ER 60 mg b.i.d. 3. Protonix 40 mg daily. 4. Motrin 400 mg q.6. 5. Ventolin HFA 2 puffs q.4 p.r.n. 6. Abilify 2 mg p.o. daily. ALLERGIES: HYDROCODONE. FAMILY HISTORY: History of fibromyalgia in the family. SOCIAL HISTORY: History of smoking. No history of alcohol intake. REVIEW OF SYSTEMS: ENT: No diminished vision or hearing. CARDIOVASCULAR; No angina or palpitations. RESPIRATION: No cough. GI: As mentioned earlier. : As mentioned earlier. NERVOUS SYSTEM: No numbness or weakness. ALLERGY/IMMUNOLOGY: As mentioned earlier. MUSCULOSKELETAL: As mentioned earlier. ENDOCRINE: No history of diabetes or hypothyroidism. CONSTITUTIONAL: As mentioned earlier. DERMATOLOGY: Negative. RHEUMATOLOGY: Negative. PSYCHIATRY: As mentioned earlier. PHYSICAL EXAMINATION: Patient is alert and oriented x3. Pulse is 73, blood pressure 100/59, respirations 16, temperature 98.2, pulse ox 100% on room air. HEENT: Conjunctivae normal. Oral mucosa moist. Neck is no jugular venous distention. No lymph node enlargement. CARDIOVASCULAR SYSTEM: S1, S2, muffled, no S3, no S4. RESPIRATORY: Breath sounds diminished at the base, no rhonchi, no crackles. ABDOMEN: Soft, mild diffuse discomfort on palpation. No guarding. No rigidity. No mass palpable. No rebound tenderness. No ascites clinically appreciated. LEGS: No edema, no swelling. NERVOUS SYSTEM: Higher functions as mentioned earlier, moves all 4 limbs, no focal motor deficits. LYMPHATICS: No lymph node enlargement in the neck or axillae. SKIN: No ulcer, rash or bleeding. LABS: Plasma lactic acid 0.5. ASSESSMENT: 1. Abdominal pain and free fluid, possible ovarian cyst rupture, rule out surgical causes. 2. History of gastroesophageal reflux disease. 3. History of degenerative joint disease. 4. History of irritable bowel syndrome. 5. History of migraines. 6. History of anxiety, depression. 7. History of nicotine dependence. RECOMMENDATION AND DISCUSSION: Recommend to continue with the current medication, continue with the symptomatic treatment. Otherwise, at this time I would recommend continued observation. Repeat CAT scan has been ordered. GEOCHEMICAL LABORATORY TECHNICIAN, Dr. Consuelo Roque has seen the patient. I would recommend a surgical evaluation, repeat labs. See orders for further details. Prognosis guarded because of multiple complex medical issues. Continue with the empiric antibiotics at this time. MMODL / IJN: [id number] /
[2017-10-19 15:12] LABS: Basophils % (A) 1 %; Eosinophils # (A) 0.3 k/uL (0-0.7); Eosinophils % (A) 3 %; HCT 34.5 % (34.0-46.0); HGB 11.2 gm/dL (11.4-16.0); Lymphocytes # (A) 2.3 k/uL (1.0-4.8); Lymphocytes % (A) 25 %; MCH 29.2 pg (25.0-35.0); MCHC 32.3 g/dL (31.0-37.0); MCV 90.2 fL (80.0-100.0); Monocytes # (A) 0.5 k/uL (0-1.0); Monocytes % (A) 5 %; Neutrophils % (A) 66 %; Platelet Count 148 k/uL (150-450); RBC 3.83 m/uL (3.80-5.40); RDW 15.4 % (11.5-15.5); WBC 9.1 k/uL (3.8-10.6)
[2017-10-19 15:18] LABS: ALT 24 U/L (9-52); AST 15 U/L (14-36); Albumin 3.8 g/dL (3.5-5.0); Alkaline Phosphatase 56 U/L (38-126); Anion Gap 8 mmol/L; Blood Urea Nitrogen 6 mg/dL (7-17); Calcium 8.5 mg/dL (8.4-10.2); Carbon Dioxide 22 mmol/L (22-30); Chloride 110 mmol/L (98-107); Glucose 85 mg/dL (74-99); Sodium 140 mmol/L (137-145); Total Bilirubin 0.5 mg/dL (0.2-1.3)
[2017-10-19] MEDS: NICOTINE 14MG/24HR PATCH TRANSDERM SCH (15:26)
[2017-10-19] MEDS: SODIUM CHLORIDE 0.9% 1,000 ML IV SCH (15:28)
--- NOTE | 2017-10-19 16:19 | CT ---
EXAMINATION TYPE: CT abdomen pelvis w con DATE OF EXAM: 10/19/2017 COMPARISON: Prior CT 02/25/2010 HISTORY: Pelvic pain today. CT DLP: 599.4 mGycm Automated exposure control for dose reduction was used. TECHNIQUE: Helical acquisition of images from the lung bases through the pelvis have been completed. CONTRAST: Performed with Oral Contrast and with IV Contrast, patient injected with 100 mL of Isovue M300. FINDINGS: LUNG BASES: No significant abnormality is appreciated. AORTA: No significant abnormality is appreciated. LIVER/GB: No significant abnormality is appreciated. PANCREAS: No significant abnormality is seen. SPLEEN: No significant abnormality is seen. ADRENALS: No significant abnormality is seen. KIDNEYS: No significant abnormality is seen. REPRODUCTIVE ORGANS: Cystic left adnexal focus is present measuring 3.3 cm, suspect free fluid in the pelvis. There is an intrauterine contraceptive device in place. BOWEL: No significant abnormality is seen. FREE AIR: No Free Air visible. ASCITES: Fluid is present around the liver and spleen. PELVIC ADENOPATHY: None visualized. RETROPERITONEAL ADENOPATHY: No Retroperitoneal Adenopathy visible. URINARY BLADDER: No significant abnormality is seen. OSSEOUS STRUCTURES: No significant abnormality is seen. IMPRESSION: THERE IS A PROBABLE LEFT OVARIAN CYST, FREE FLUID IS PRESENT WITHIN THE PELVIS AND ABDOMEN. INTERVAL PLACEMENT OF AN INTRAUTERINE CONTRACEPTIVE DEVICE.
[2017-10-19] MEDS ORDERED: HYDROmorphone 1 MG/ML 1 ML SYRINGE IVP PRN (16:57)
[2017-10-19] MEDS: PIPERACILLIN-TAZOBACTAM 3.375 GM in DEXTROSE/WATER 1 50ML.BAG IVPB SCH (17:22)
[2017-10-19] MEDS: ONDANSETRON 4 MG/2 ML VIAL IVP PRN (21:03)
[2017-10-19] MEDS: ALPRAZolam 0.25 MG TAB PO PRN (21:05)
[2017-10-19] MEDS: PANTOPRAZOLE 40 MG/10 ML VIAL IVP SCH (21:15)
[2017-10-19] MEDS: HYDROmorphone 1 MG/ML 1 ML SYRINGE IM PRN (21:16)
[2017-10-20] MEDS: PIPERACILLIN-TAZOBACTAM 3.375 GM in DEXTROSE/WATER 1 50ML.BAG IVPB SCH ×2 (01:08→08:59)
[2017-10-20] MEDS: ONDANSETRON 4 MG/2 ML VIAL IVP PRN (05:17)
[2017-10-20] MEDS: HYDROmorphone 1 MG/ML 1 ML SYRINGE IM PRN (05:21)
[2017-10-20] MEDS: SODIUM CHLORIDE 0.9% 1,000 ML IV SCH (05:26)
[2017-10-20 06:45] LABS: Basophils % (A) 1 %; Eosinophils # (A) 0.2 k/uL (0-0.7); Eosinophils % (A) 4 %; HCT 30.7 % (34.0-46.0); HGB 10.2 gm/dL (11.4-16.0); Lymphocytes % (A) 37 %; MCH 29.4 pg (25.0-35.0); MCHC 33.1 g/dL (31.0-37.0); MCV 88.9 fL (80.0-100.0); Mean Platelet Volume 10.7; Monocytes # (A) 0.3 k/uL (0-1.0); Monocytes % (A) 5 %; Neutrophils # (A) 2.8 k/uL (1.3-7.7); Neutrophils % (A) 52 %; Platelet Count 131 k/uL (150-450); RBC 3.46 m/uL (3.80-5.40); RDW 15.5 % (11.5-15.5); WBC 5.5 k/uL (3.8-10.6)
[2017-10-20 06:57] LABS: Anion Gap 1 mmol/L; Blood Urea Nitrogen 5 mg/dL (7-17); Calcium 8.1 mg/dL (8.4-10.2); Carbon Dioxide 25 mmol/L (22-30); Chloride 114 mmol/L (98-107); Glucose 86 mg/dL (74-99); Sodium 140 mmol/L (137-145)
[2017-10-20] MEDS: KETOROLAC 30 MG/ML 1 ML VIAL IVP PRN ×2 (07:54→13:20)
[2017-10-20] MEDS: ALPRAZolam 0.25 MG TAB PO PRN ×2 (07:55→13:20)
--- NOTE | 2017-10-20 08:23 | P.GSCN ---
History of Present Illness Consult date: 10/20/17 Reason for Consult: Abdominal pain History of present illness: This a 22-year-old female who presents emergency room. Patient had complaints of severe lower quadrant abdominal pain. Patient states that she had pain prostate 30 minutes after having intercourse with her significant other. Patient states that this happened to her in the past. Patient describes a crampy lower quadrant pain. States her pain was a tentative 10 last night however this morning it is a 4 out of 10. Past Medical History Past Medical History: Asthma, GERD/Reflux, Osteoarthritis (OA) Additional Past Medical History / Comment(s): Pt states she was recently treated for a "uterine bacterial infection", ovarian cysts, has IUD, ibs, chronic constipation, migraines, arthritis multiple joints, recent L great toenail removed. History of Any Multi-Drug Resistant Organisms: None Reported Past Surgical History: Tonsillectomy Additional Past Surgical History / Comment(s): 04/17/17 EGDs/colonoscopies, wisdom teeth extraction, stye removed from L eye. Past Anesthesia/Blood Transfusion Reactions: No Reported Reaction Smoking Status: Current every day smoker - Past Family History Sister(s) Family Medical History: Fibromyalgia Mother Additional Family Medical History / Comment(s): Mother has osteoporosis, migraines, depression, anxiety and ovarian cysts. Father History Unknown: Yes Additional Family Medical History / Comment(s): Pt does not know paternal father. Medications and Allergies Home Medications Medication Instructions Recorded Confirmed Type Albuterol Inhaler [Ventolin Hfa 2 puff INHALATION RT-Q4H PRN 04/17/17 10/19/17 History Inhaler] ARIPiprazole [Abilify] 2 mg PO DAILY 10/19/17 10/19/17 History Ibuprofen [Motrin Ib] 400 mg PO Q6H PRN 10/19/17 10/19/17 History Pantoprazole [Protonix] 40 mg PO DAILY 10/19/17 10/19/17 History Propranolol HCl [Propranolol HCl 60 mg PO DAILY 10/19/17 10/19/17 History ER] Sertraline HCl [Zoloft] 100 mg PO DAILY 10/19/17 10/19/17 History Allergies Allergy/AdvReac Type Severity Reaction Status Date / Time hydrocodone [From [place]] AdvReac Nausea & Verified 10/19/17 09:34 Vomiting/HALLUCINATIONS Surgical - Exam Vital Signs Temp Pulse Resp BP Pulse Ox 98.2 F 67 18 98/55 100 10/19/17 08:58 10/19/17 08:58 10/19/17 08:58 10/19/17 08:58 10/19/17 08:58 - General well developed, no distress - Eyes PERRL - ENT normal pinna - Neck no masses - Respiratory normal expansion - Cardiovascular Rhythm: regular - Abdomen Mild lower quadrant tenderness. There is no rebound or guarding. Abdomen: soft Results - Labs 10/20/17 06:11 10/20/17 06:11 Abnormal Lab Results - Last 24 Hours (Table) 10/19/17 10/19/17 10/19/17 Range/Units 12:35 14:54 14:54 RBC (3.80-5.40) m/uL Hgb 11.2 L (11.4-16.0) gm/dL Hct (34.0-46.0) % Plt Count 148 L (150-450) k/uL Chloride 110 H (98-107) mmol/L BUN 6 L (7-17) mg/dL Plasma Lactic Acid Meek <0.5 L (0.7-2.0) mmol/L Calcium (8.4-10.2) mg/dL Total Protein 6.0 L (6.3-8.2) g/dL 10/20/17 10/20/17 Range/Units 06:11 06:11 RBC 3.46 L (3.80-5.40) m/uL Hgb 10.2 L (11.4-16.0) gm/dL Hct 30.7 L (34.0-46.0) % Plt Count 131 L (150-450) k/uL Chloride 114 H (98-107) mmol/L BUN 5 L (7-17) mg/dL Plasma Lactic Acid Meek (0.7-2.0) mmol/L Calcium 8.1 L (8.4-10.2) mg/dL Total Protein (6.3-8.2) g/dL Diabetes panel 10/19/17 10/20/17 Range/Units 14:54 06:11 Sodium 140 140 (137-145) mmol/L Potassium 4.0 4.0 (3.5-5.1) mmol/L Chloride 110 H 114 H (98-107) mmol/L Carbon Dioxide 22 25 (22-30) mmol/L BUN 6 L 5 L (7-17) mg/dL Creatinine 0.69 0.89 (0.52-1.04) mg/dL Glucose 85 86 (74-99) mg/dL Calcium 8.5 8.1 L (8.4-10.2) mg/dL AST 15 (14-36) U/L ALT 24 (9-52) U/L Alkaline Phosphatase 56 (38-126) U/L Total Protein 6.0 L (6.3-8.2) g/dL Albumin 3.8 (3.5-5.0) g/dL Calcium panel 10/19/17 10/20/17 Range/Units 14:54 06:11 Calcium 8.5 8.1 L (8.4-10.2) mg/dL Albumin 3.8 (3.5-5.0) g/dL Pituitary panel 10/19/17 10/20/17 Range/Units 14:54 06:11 Sodium 140 140 (137-145) mmol/L Potassium 4.0 4.0 (3.5-5.1) mmol/L Chloride 110 H 114 H (98-107) mmol/L Carbon Dioxide 22 25 (22-30) mmol/L BUN 6 L 5 L (7-17) mg/dL Creatinine 0.69 0.89 (0.52-1.04) mg/dL Glucose 85 86 (74-99) mg/dL Calcium 8.5 8.1 L (8.4-10.2) mg/dL Adrenal panel 10/19/17 10/20/17 Range/Units 14:54 06:11 Sodium 140 140 (137-145) mmol/L Potassium 4.0 4.0 (3.5-5.1) mmol/L Chloride 110 H 114 H (98-107) mmol/L Carbon Dioxide 22 25 (22-30) mmol/L BUN 6 L 5 L (7-17) mg/dL Creatinine 0.69 0.89 (0.52-1.04) mg/dL Glucose 85 86 (74-99) mg/dL Calcium 8.5 8.1 L (8.4-10.2) mg/dL Total Bilirubin 0.5 (0.2-1.3) mg/dL AST 15 (14-36) U/L ALT 24 (9-52) U/L Alkaline Phosphatase 56 (38-126) U/L Total Protein 6.0 L (6.3-8.2) g/dL Albumin 3.8 (3.5-5.0) g/dL - Imaging US - pelvic: report reviewed (7 x 6 cm complex mass in the posterior cul-de-sac. ) Assessment and Plan Assessment: Abdominal pain Patient most likely has a ruptured ovarian cysts. I recommended reimaging with pelvic ultrasound to see if there is resolution of her complex mass. Has been evaluated by Dr. Roque
[2017-10-20] MEDS: NICOTINE 14MG/24HR PATCH TRANSDERM SCH (08:58)
[2017-10-20] MEDS: PANTOPRAZOLE 40 MG/10 ML VIAL IVP SCH (08:58)
[2017-10-20] MEDS ORDERED: SERTRALINE 100 MG TAB PO SCH (09:00)
[2017-10-20] MEDS ORDERED: PROPRANOLOL LA 60 MG CAP.SA.24H PO SCH (09:00)
[2017-10-20] MEDS ORDERED: ARIPiprazole 2 MG TAB PO SCH (09:00)
[2017-10-20] MEDS ORDERED: PANTOPRAZOLE 40 MG/10 ML VIAL IV SCH (09:00)
[2017-10-20 12:32] VITALS: BP 102/69; PULSE 83; RESP 16; TEMP 98.9
--- NOTE | 2017-10-20 14:51 | DS ---
DISCHARGE SUMMARY DATE OF ADMISSION: 10/19/2017. ADMITTING DIAGNOSIS: Abdominal pain. DATE OF DISCHARGE: 10/20/2017. DISCHARGE DIAGNOSES: 1. Abdominal pain. 2. Well seated IUD. 3. Free peritoneal fluid. This is a 22-year-old female, 2, para 1-0-1-1, LMP 09/24/2017, who presented to the emergency room with abdominal pain that started at the time of deep penetration at intercourse. Patient states that the pain was diffuse and very quick and sharp in nature. She was admitted for evaluation, white blood cell count was noted to be 20,000. Pelvic ultrasound was performed which revealed a well seated IUD, normal appearing ovaries bilaterally, normal-appearing uterine dimensions and endometrial stripe. There was good arterial and venous flow noted within both ovaries. There was a pocket of free fluid in the abdomen measuring 7.6 x 3.9 x 2.9 cm, likely consistent with ruptured ovarian cyst. There is another area of complexity posterior in the pelvis measuring 6.7 x 3.3 x 5.8 cm that does not appear to be vascular. Consultation was performed with General Surgery. Please see admitting H and P for details. This morning, white blood cell count has been repeated and is 5. The patient's vital signs are stable and she is afebrile. She was very hungry on examination this morning, diet has been advanced and she tolerated a large regular breakfast tray. She has showered, is ambulating, passing flatus, and overall feeling greatly improved. Her abdomen is still softly distended, with mild rebound, consistent with intraperitoneal fluid. The patient has a history of ovarian cyst, which ruptured at age 19. There do not appear to be any problems with the IUD. Gonorrhea and chlamydia cultures have been performed, the preliminary cultures are negative. Clinically, the patient is greatly improved. The consideration was made for diagnostic laparoscopy, but at this time, we will proceed with conservative management. The patient will be discharged home, I reviewed with her instructions for outpatient care. No intercourse, no heavy lifting, no work until followup in the office. I would like to see the patient in the office for followup examination and ultrasound on October 31, 2017, this appointment has been made. She will call me with any increased pain, fever, shakes or chills, urinary or defecatory issues, with any unusual vaginal bleeding, with any concerns or complaints. We will follow the cultures through to completion. MMODL / IJN: [id number] /
--- NOTE | 2017-10-21 10:25 | DS ---
DISCHARGE SUMMARY DATE OF SERVICE: 10/21/2017. FINAL DIAGNOSES: 1. Abdominal pain flow and free fluid in the abdomen of undetermined etiology. Possible ovarian cyst rupture. 2. Gastroesophageal reflux disease. 3. History of degenerative joint disease. 4. History of irritable bowel syndrome. 5. History of migraines. 6. Anxiety and depression. 7. History of nicotine dependence. DISCHARGE DISPOSITION: The patient will be discharged in stable condition with guarded prognosis. BANKING ANALYST and Surgery cleared the patient. HISTORY OF PRESENT ILLNESS: This 22-year-old woman with a past medical history of multiple medical problems was admitted with abdominal pain, which was treated. Patient had free fluid in the CAT scan and the patient was seen by Surgery and as well as BANKING ANALYST. Patient improved significantly. Patient was discharged in stable condition with guarded prognosis with further plans for outpatient followup. On exam, vital signs are stable. CARDIOVASCULAR: S1 and S2 muffled. ABDOMEN: Soft. NERVOUS SYSTEM: No focal deficits. DISCHARGE ADVICE: 1. Diet is cardiac. 2. Activity is limited to followup. 3. Follow up with Dr. Cabezas in 2 to 3 days. 4. Follow up with BANKING ANALYST and Surgery as mentioned. MEDICATIONS: 1. Ventolin HFA mcg 2 puffs daily. 2. Abilify 2 mg p.o. daily. 3. Ibuprofen p.r.n. 4. Protonix 40 mg daily. 5. Propranolol 60 mg p.o. daily. 6. Zoloft 100 mg p.o. daily. 7. Augmentin 875 mg p.o. b.i.d. for 4 days. 8. Habitrol 14 daily. MMODL / IJN: [id number] / MTDD
== END 2017-10-20 13:35 | disposition home or self-care (01) | DRG 761 ==
LOC: EC 08:57 → 6PED 13:27
PROVIDERS: ADMIT Hospitalist; ATTEND Hospitalist
DX: N83.209 Unspecified ovarian cyst, unspecified side (principal); D72.829 Elevated white blood cell count, unspecified; F17.210 Nicotine dependence, cigarettes, uncomplicated; F32.9 Major depressive disorder, single episode, unspecified; F41.9 Anxiety disorder, unspecified; G43.909 Migraine, unspecified, not intractable, without status migrainosus; J45.909 Unspecified asthma, uncomplicated; K21.9 Gastro-esophageal reflux disease without esophagitis; K58.9 Irritable bowel syndrome, unspecified; M15.9 Polyosteoarthritis, unspecified; K59.09 Other constipation; Z79.899 Other long term (current) drug therapy; Z88.5 Allergy status to narcotic agent; Z91.048 Other nonmedicinal substance allergy status; Z82.62 Family history of osteoporosis; Z81.8 Family history of other mental and behavioral disorders; Z82.0 Family history of epilepsy and other diseases of the nervous system
CPT/HCPCS: 36415; 74177; 76830; 80048; 80053; 83605; 85025; 87040; 93975; 96361; 96365; 96375; 99285

== ENCOUNTER → 2017-10-24 | Outpatient (CLI) | payer OTHER ==
[2017-10-24 14:27] LABS: Anisocytosis Slight; Basophils % (A) 1 %; Eosinophils # (A) 0.3 k/uL (0-0.7); Eosinophils % (A) 4 %; HCT 37.3 % (34.0-46.0); HGB 12.2 gm/dL (11.4-16.0); Lymphocytes # (A) 1.7 k/uL (1.0-4.8); Lymphocytes % (A) 22 %; MCH 29.1 pg (25.0-35.0); MCHC 32.6 g/dL (31.0-37.0); MCV 89.2 fL (80.0-100.0); Mean Platelet Volume 9.6; Monocytes # (A) 0.4 k/uL (0-1.0); Monocytes % (A) 5 %; Neutrophils # (A) 5.1 k/uL (1.3-7.7); Neutrophils % (A) 68 %; Platelet Count 203 k/uL (150-450); RBC 4.18 m/uL (3.80-5.40); RDW 16.1 % (11.5-15.5); WBC 7.6 k/uL (3.8-10.6)
[2017-10-24 14:42] LABS: Anion Gap 10 mmol/L; Blood Urea Nitrogen 10 mg/dL (7-17); Calcium 9.6 mg/dL (8.4-10.2); Carbon Dioxide 25 mmol/L (22-30); Chloride 107 mmol/L (98-107); Glucose 92 mg/dL (74-99); Potassium 4.4 mmol/L (3.5-5.1); Sodium 142 mmol/L (137-145)
== END | disposition home or self-care (01) ==
LOC: LABWHC1 13:20
PROVIDERS: ATTEND Nurse Practitioner
DX: D64.9 Anemia, unspecified (principal); R10.9 Unspecified abdominal pain
CPT/HCPCS: 36415; 80048; 85025

== ENCOUNTER 2018-11-27 08:47 | Day surgery (SDC) | payer OTHER ==
[2018-11-22 09:16] VITALS: BMI 22.8
[~2018-11-27 08:47] MED LIST: DEXAMETHASONE SOD PHOSPHATE 10 MG/ML 1 ML VIAL IV ONE; HYDROmorphone 0.5 MG/0.5 ML SYRINGE IVP PRN; KETOROLAC 30 MG/ML 1 ML VIAL IVP SCH; LACTATED RINGERS 1,000 ML IV SCH; LIDOCAINE 1% 20 ML VIAL (10MG/ML) FOR IV START INTRADERMA PRN; METOCLOPRAMIDE 5 MG/ML 2 ML VIAL IVP PRN; ONDANSETRON 4 MG/2 ML VIAL IVP ONE; SCOPOLAMINE 1.5MG/72HR PATCH TRANSDERM ONE; metroNIDAZOLE-NS PMX 500 MG in SALINE 1 100ML.BAG IVPB ONE
[2018-11-27 09:28] VITALS: RESP 16; TEMP 97.9
--- NOTE | 2018-11-27 09:57 | P.GSHP ---
History of Present Illness H&P Date: 11/27/18 Chief Complaint: Pilonidal cyst This a 20-year-old female with history of chronically inflamed pilonidal cyst. Patient rents today for excision of pilonidal cyst. Patient aware the wound will be packed. Past Medical History Past Medical History: Asthma, GERD/Reflux, Osteoarthritis (OA) Additional Past Medical History / Comment(s): IBS/CONSTIPATION, MIGRAINES, HIATAL HERNIA, PILONIDAL CYST History of Any Multi-Drug Resistant Organisms: None Reported Past Surgical History: Tonsillectomy Additional Past Surgical History / Comment(s): EGDs/colonoscopies, stye removed from L eye., STATES LAPRASCOPIC SURGERY FOR LESIONS & CYSTS ON UTERUS AND OVARIES Past Anesthesia/Blood Transfusion Reactions: No Reported Reaction Past Psychological History: Anxiety, Depression Additional Psychological History / Comment(s): . Smoking Status: Current every day smoker Past Alcohol Use History: None Reported Additional Past Alcohol Use History / Comment(s): Pt started smoking in 2010. She is a ppd smoker. Past Drug Use History: Marijuana Additional Drug Use History / Comment(s): CBD OIL - Past Family History Sister(s) Family Medical History: Fibromyalgia Mother Additional Family Medical History / Comment(s): Mother has osteoporosis, migraines, depression, anxiety and ovarian cysts. Father History Unknown: Yes Family Medical History: Unable to Obtain Additional Family Medical History / Comment(s): Pt does not know paternal father. Medications and Allergies Home Medications Medication Instructions Recorded Confirmed Type Albuterol Inhaler [Ventolin Hfa 2 puff INHALATION Q4-6H PRN 04/17/17 11/27/18 History Inhaler] Biotin 5 mg PO DAILY 11/22/18 11/27/18 History Cannabidiol (Cbd) Extract 1 dose PO DIRECTED PRN 11/22/18 11/27/18 History [Epidiolex] Prazosin [Minipress] 5 mg PO HS 11/22/18 11/27/18 History Venlafaxine HCl [Effexor XR] 150 mg PO DAILY 11/22/18 11/27/18 History Sulfamethox-Tmp 800-160Mg [Bactrim 1 tab PO Q12HR 11/27/18 11/27/18 History DS 800-160 mg] Allergies Allergy/AdvReac Type Severity Reaction Status Date / Time adhesive AdvReac Unknown Rash/Hives, Verified 11/22/18 09:03 Sores gabapentin AdvReac Unknown Verified 11/27/18 09:22 hydrocodone [From [place]] AdvReac Nausea & Verified 11/22/18 08:49 Vomiting/HALLUCINATIONS Surgical - Exam Vital Signs Temp Pulse Resp BP Pulse Ox 97.9 F 89 16 107/69 99 11/27/18 09:27 11/27/18 09:27 11/27/18 09:27 11/27/18 09:27 11/27/18 09:27 - General well developed, well nourished, no distress - Eyes PERRL - ENT normal pinna - Neck no masses - Respiratory normal expansion - Cardiovascular Rhythm: regular - Abdomen Abdomen: soft, non tender Assessment and Plan Assessment: Pilonidal cyst. We'll perform excision.
[2018-11-27] MEDS ORDERED: MIDAZOLAM 2 MG/2 ML VIAL ONE (10:13)
[2018-11-27] MEDS ORDERED: KETAMINE 10 MG/ML 20 ML VIAL ONE (10:13)
[2018-11-27] MEDS ORDERED: PROPOFOL 10 MG/ML 20 ML VIAL IV ONE (10:13)
[2018-11-27] MEDS ORDERED: BUPIVACAINE (PF) 0.5% 30 ML VIAL SQ ONE (10:32)
--- NOTE | 2018-11-27 10:56 | P.OP ---
Date of Procedure: 11/27/18 Preoperative Diagnosis: Pilonidal cyst Postoperative Diagnosis: Pilonidal cyst Procedure(s) Performed: Excision of pilonidal cyst Anesthesia: SHAYLEE Surgeon: Justice Larry Estimated Blood Loss (ml): 5 Pathology: other (Pilonidal cyst) Condition: stable Disposition: PACU (Cyst pilonidal) Description of Procedure: The patient's placed on the operative table in the prone position. She received IV sedation. Her urinalysis was prepped and draped in usual sterile fashion. The skin was anesthetized 1% local Xylocaine. Then using a 15 blade the skin was incised. The needle and cautery the pylorus this was excised. The Bovie is hemostasis. The wound was packed with wet dry Kerlix. Patient top she will was sent to recovery room in stable condition.
[2018-11-27 11:21] VITALS: BP 102/67; PULSE 75
== END 2018-11-27 12:26 | disposition home or self-care (01) ==
LOC: OR 08:47
PROVIDERS: ATTEND Surgery
DX: L05.91 Pilonidal cyst without abscess (principal); J45.909 Unspecified asthma, uncomplicated; F17.210 Nicotine dependence, cigarettes, uncomplicated; M19.90 Unspecified osteoarthritis, unspecified site; G43.909 Migraine, unspecified, not intractable, without status migrainosus; K21.9 Gastro-esophageal reflux disease without esophagitis; K58.1 Irritable bowel syndrome with constipation; F41.9 Anxiety disorder, unspecified; F32.9 Major depressive disorder, single episode, unspecified; K44.9 Diaphragmatic hernia without obstruction or gangrene; Z90.89 Acquired absence of other organs; Z98.890 Other specified postprocedural states; Z79.899 Other long term (current) drug therapy; Z91.09 Other allergy status, other than to drugs and biological substances; Z88.8 Allergy status to other drugs, medicaments and biological substances; Z88.5 Allergy status to narcotic agent; Z81.8 Family history of other mental and behavioral disorders; Z82.62 Family history of osteoporosis; Z82.0 Family history of epilepsy and other diseases of the nervous system; Z84.2 Family history of other diseases of the genitourinary system
CPT/HCPCS: 81025; 88304; 11770; J2250; J1100; J0690; J2405; J2704

== ENCOUNTER 2018-11-28 02:27 | Emergency (ER) | payer OTHER ==
[2018-11-28 02:31] VITALS: TEMP 98.9
[2018-11-28] MEDS ORDERED: KETOROLAC 30 MG/ML 1 ML VIAL IM STA (02:42)
[2018-11-28] MEDS ORDERED: HYDROmorphone 0.5 MG/0.5 ML SYRINGE IM STA (02:42)
[2018-11-28] MEDS ORDERED: HYDROcodone/APAP 5-325MG 1 EACH TAB PO STA (02:42)
[2018-11-28] MEDS ORDERED: diphenhydrAMINE 50 MG CAP PO STA (03:29)
--- NOTE | 2018-11-28 03:32 | ED ---
General Adult HPI - General Chief complaint: Wound/Laceration Stated complaint: Post op complications Time Seen by Provider: 11/28/18 02:34 Source: patient Mode of arrival: ambulatory Limitations: no limitations - History of Present Illness Initial comments: 23-year-old female patient presents to the emergency department today for evaluation of evaluation of her postop wound. Patient had a pilonidal cyst excision yesterday morning with Dr. Larry. Patient states that she has had bleeding from the wound and increased pain. Patient states she did take Tylenol with Codeine at home but hasn't been touching the pain. Patient states she has had to change the dressing twice since arriving home. She denies any fevers or chills. Denies any dizziness or weakness. Patient denies any recent rash, shortness breath, chest pain, abdominal pain, nausea, vomiting, diarrhea, constipation, back pain, numbness, tingling, dizziness, weakness, hematuria, d ysuria, urinary urgency, urinary frequency, headache, visual changes, or any other complaints. - Related Data Home Medications Medication Instructions Recorded Confirmed Albuterol Inhaler [Ventolin Hfa 2 puff INHALATION Q4-6H PRN 04/17/17 11/27/18 Inhaler] Biotin 5 mg PO DAILY 11/22/18 11/27/18 Cannabidiol (Cbd) Extract 1 dose PO DIRECTED PRN 11/22/18 11/27/18 [Epidiolex] Prazosin [Minipress] 5 mg PO HS 11/22/18 11/27/18 Venlafaxine HCl [Effexor XR] 150 mg PO DAILY 11/22/18 11/27/18 Sulfamethox-Tmp 800-160Mg [Bactrim 1 tab PO Q12HR 11/27/18 11/27/18 DS 800-160 mg] Previous Rx's Medication Instructions Recorded Acetaminophen with Codeine 1 tab PO Q4H PRN 3 Days #18 tab 11/27/18 [Tylenol w/codeine #3] Docusate [Colace] 100 mg PO BID #20 capsule 11/27/18 Allergies Allergy/AdvReac Type Severity Reaction Status Date / Time adhesive AdvReac Unknown Rash/Hives, Verified 11/28/18 02:31 Sores gabapentin AdvReac Unknown Verified 11/28/18 02:31 hydrocodone [From [place]] AdvReac Nausea & Verified 11/28/18 02:31 Vomiting/HALLUCINATIONS Review of Systems ROS Statement: Those systems with pertinent positive or pertinent negative responses have been documented in the HPI. ROS Other: All systems not noted in ROS Statement are negative. Past Medical History Past Medical History: Asthma, GERD/Reflux, Osteoarthritis (OA) Additional Past Medical History / Comment(s): IBS/CONSTIPATION, MIGRAINES, HIATAL HERNIA, PILONIDAL CYST History of Any Multi-Drug Resistant Organisms: None Reported Past Surgical History: Tonsillectomy Additional Past Surgical History / Comment(s): EGDs/colonoscopies, stye removed from L eye., STATES LAPRASCOPIC SURGERY FOR LESIONS & CYSTS ON UTERUS AND OVARIES Past Anesthesia/Blood Transfusion Reactions: No Reported Reaction Past Psychological History: Anxiety, Depression Smoking Status: Current every day smoker Past Alcohol Use History: None Reported Past Drug Use History: Marijuana - Past Family History Sister(s) Family Medical History: Fibromyalgia Mother Additional Family Medical History / Comment(s): Mother has osteoporosis, migraines, depression, anxiety and ovarian cysts. Father History Unknown: Yes Family Medical History: Unable to Obtain Additional Family Medical History / Comment(s): Pt does not know paternal father. General Exam Limitations: no limitations General appearance: alert, in no apparent distress, other (This is a well- developed, well-nourished adult female patient in no acute distress. Vital signs upon presentation are temperature 98.9F, pulse 101, respirations 20, blood pressure 106/71, pulse ox 100% on room air.) Eye exam: Present: normal appearance, PERRL, EOMI. Absent: scleral icterus, conjunctival injection, periorbital swelling ENT exam: Present: normal exam, normal oropharynx, mucous membranes moist Respiratory exam: Present: normal lung sounds bilaterally. Absent: respiratory distress, wheezes, rales, rhonchi, stridor Cardiovascular Exam: Present: regular rate, normal rhythm, normal heart sounds. Absent: systolic murmur, diastolic murmur, rubs, gallop, clicks Neurological exam: Present: alert, oriented X3, CN II-XII intact Psychiatric exam: Present: normal affect, normal mood Skin exam: Present: warm, dry, intact, normal color, other (Surgical site is intact. Minimal serosanguineous drainage.). Absent: rash Course Vital Signs 09/18/19 02:29 Temperature 98.9 F Pulse Rate 101 H Respiratory 20 Rate Blood Pressure 106/71 O2 Sat by Pulse 100 Oximetry Medical Decision Making - Medical Decision Making 23-year-old female patient presents to the emergency department today for evaluation of postop pain and bleeding. Physical examination did reveal minimal serosanguineous drainage from the pilonidal cyst excision site. Vital signs are within normal ranges. Patient was given doses of pain medication for symptom relief. She will be discharged at this time to follow-up with her surgeon for recheck as soon as possible. She is instructed to call the office in the morning for her pain medication change. Return parameters were discussed in detail. They verbalize understanding and agree with this plan. Disposition Clinical Impression: Post-op pain Disposition: HOME SELF-CARE Condition: Good Instructions (If sedation given, give patient instructions): Pilonidal Cyst Excision (DC) Additional Instructions: Keep dressing clean and dry. Follow-up with your surgeon for recheck as soon as possible. Call the office in the morning to request different pain medication. Return to the emergency department immediately for any new, worsening, or concerning symptoms. Is patient prescribed a controlled substance at d/c from ED?: No Referrals: Steph Cabezas MD [Primary Care Provider] - 1-2 days Time of Disposition: 03:32
[2018-11-28 03:54] VITALS: BP 99/52; PULSE 87; RESP 18
== END 2018-11-28 03:54 | disposition home or self-care (01) ==
LOC: EC 02:27
DX: G89.18 Other acute postprocedural pain (principal); L76.01 Intraoperative hemorrhage and hematoma of skin and subcutaneous tissue complicating a dermatologic procedure; J45.909 Unspecified asthma, uncomplicated; F41.9 Anxiety disorder, unspecified; F32.9 Major depressive disorder, single episode, unspecified; F17.200 Nicotine dependence, unspecified, uncomplicated; Z79.899 Other long term (current) drug therapy; Z79.51 Long term (current) use of inhaled steroids; Z91.048 Other nonmedicinal substance allergy status; Z88.5 Allergy status to narcotic agent; Z88.8 Allergy status to other drugs, medicaments and biological substances; Z98.890 Other specified postprocedural states
CPT/HCPCS: 99283; 96372 ×2; J1885; J1170

== ENCOUNTER 2018-12-14 22:58 | Emergency (ER) | payer OTHER ==
[2018-12-14 23:54] VITALS: RESP 16
[2018-12-15] MEDS ORDERED: SODIUM CHLORIDE 0.9% 1,000 ML IV STA (00:10)
[2018-12-15 01:19] LABS: Basophils # (A) 0.1 k/uL (0-0.2); Basophils % (A) 1 %; Eosinophils # (A) 0.3 k/uL (0-0.7); Eosinophils % (A) 3 %; HCT 42.7 % (34.0-46.0); HGB 13.7 gm/dL (11.4-16.0); Lymphocytes # (A) 2.9 k/uL (1.0-4.8); Lymphocytes % (A) 31 %; MCH 31.5 pg (25.0-35.0); MCV 98.3 fL (80.0-100.0); Mean Platelet Volume 8.6; Monocytes # (A) 0.5 k/uL (0-1.0); Monocytes % (A) 5 %; Neutrophils # (A) 5.4 k/uL (1.3-7.7); Neutrophils % (A) 58 %; Platelet Count 188 k/uL (150-450); RBC 4.35 m/uL (3.80-5.40); RDW 13.9 % (11.5-15.5); WBC 9.3 k/uL (3.8-10.6)
[2018-12-15 01:21] LABS: Appearance,Urine Clear (Clear); Bilirubin,Urine Negative (Negative); Blood,Urine Negative (Negative); Color,Urine Colorless; Glucose,Urine (UA) Negative (Negative); Ketones,Urine Negative (Negative); Leukocyte Esterase,Urine Negative (Negative); Nitrite,Urine Negative (Negative); Protein,Urine Negative (Negative); Specific Gravity,Urine 1.004 (1.001-1.035); Urobilinogen,Urine <2.0 mg/dL (<2.0)
--- NOTE | 2018-12-15 01:21 | XR ---
EXAMINATION TYPE: XR chest 2V DATE OF EXAM: 12/15/2018 COMPARISON: February 11, 2014 HISTORY: Syncope TECHNIQUE: Frontal and lateral views of the chest are obtained. FINDINGS: Heart and mediastinum are normal. Lungs are clear. Diaphragm is normal. Bony thorax appear s normal. There are chest leads. IMPRESSION: Normal chest. No change.
[2018-12-15 01:36] LABS: INR 0.9 (<1.2); Partial Thromboplastin Time 28.3 sec (22.0-30.0); Prothrombin Time 9.7 sec (9.0-12.0)
[2018-12-15 01:50] LABS: ALT 23 U/L (9-52); AST 20 U/L (14-36); African American GFR (CKD) >90 (>60 ml/min/1.73 sqM); Albumin 4.4 g/dL (3.5-5.0); Alkaline Phosphatase 68 U/L (38-126); Anion Gap 9 mmol/L; Blood Urea Nitrogen 13 mg/dL (7-17); Calcium 9.5 mg/dL (8.4-10.2); Carbon Dioxide 28 mmol/L (22-30); Chloride 102 mmol/L (98-107); Glucose 82 mg/dL (74-99); Magnesium 2.1 mg/dL (1.6-2.3); Non-African American GFR(CKD) >90 (>60 ml/min/1.73 sqM); Potassium 4.4 mmol/L (3.5-5.1); Sodium 139 mmol/L (137-145); Total Bilirubin 0.2 mg/dL (0.2-1.3); Total Protein 7.2 g/dL (6.3-8.2)
--- NOTE | 2018-12-15 02:55 | ED ---
Dizziness HPI - General Chief Complaint: Syncope Stated Complaint: Syncope Time Seen by Provider: 12/14/18 23:50 Source: patient Mode of arrival: ambulatory Limitations: no limitations - History of Present Illness Initial Comments: 23-year-old female patient presents to the emergency department today for evaluation of syncope. Patient states that over the last 2-1/2 weeks she has had 5 episodes of syncope. States the last one was 24 hours ago. States that she came in this evening because she did not want to go to work. Patient states that she'll be walking around and suddenly her head will get fuzzy and she'll pass out. She denies any chest pain or shortness of breath with these episodes. Denies any persistent dizziness. States that she did have a pilonidal cyst excision with Dr. Larry two weeks ago. She states that she has been having green drainage from the surgical site. She denies any fever or chills. She denies significant pain to the area. Patient denies any recent rash, shortness breath, chest pain, abdominal pain, nausea, vomiting, diarrhea, constipation, back pain, numbness, tingling, dizziness, weakness, hematuria, dysuria, urinary urgency, urinary frequency, headache, visual changes, or any other complaints. - Related Data Home Medications Medication Instructions Recorded Confirmed Albuterol Inhaler [Ventolin Hfa 2 puff INHALATION Q4-6H PRN 04/17/17 11/27/18 Inhaler] Biotin 5 mg PO DAILY 11/22/18 11/27/18 Cannabidiol (Cbd) Extract 1 dose PO DIRECTED PRN 11/22/18 11/27/18 [Epidiolex] Prazosin [Minipress] 5 mg PO HS 11/22/18 11/27/18 Venlafaxine HCl [Effexor XR] 150 mg PO DAILY 11/22/18 11/27/18 Sulfamethox-Tmp 800-160Mg [Bactrim 1 tab PO Q12HR 11/27/18 11/27/18 DS 800-160 mg] Previous Rx's Medication Instructions Recorded Acetaminophen with Codeine 1 tab PO Q4H PRN 3 Days #18 tab 11/27/18 [Tylenol w/codeine #3] Docusate [Colace] 100 mg PO BID #20 capsule 11/27/18 Allergies Allergy/AdvReac Type Severity Reaction Status Date / Time adhesive AdvReac Unknown Rash/Hives, Verified 12/14/18 23:07 Sores gabapentin AdvReac Unknown Verified 12/14/18 23:07 hydrocodone [From [place]] AdvReac Nausea & Verified 12/14/18 23:07 Vomiting/HALLUCINATIONS Review of Systems ROS Statement: Those systems with pertinent positive or pertinent negative responses have been documented in the HPI. ROS Other: All systems not noted in ROS Statement are negative. Past Medical History Past Medical History: Asthma, GERD/Reflux, Osteoarthritis (OA) Additional Past Medical History / Comment(s): IBS/CONSTIPATION, MIGRAINES, HIATAL HERNIA, PILONIDAL CYST History of Any Multi-Drug Resistant Organisms: None Reported Past Surgical History: Tonsillectomy Additional Past Surgical History / Comment(s): EGDs/colonoscopies, stye removed from L eye., STATES LAPRASCOPIC SURGERY FOR LESIONS & CYSTS ON UTERUS AND OVARIES, pylonidal cyst removal Past Anesthesia/Blood Transfusion Reactions: No Reported Reaction Past Psychological History: Anxiety, Depression Smoking Status: Current every day smoker Past Alcohol Use History: None Reported Past Drug Use History: Marijuana - Past Family History Sister(s) Family Medical History: Fibromyalgia Mother Additional Family Medical History / Comment(s): Mother has osteoporosis, migraines, depression, anxiety and ovarian cysts. Father History Unknown: Yes Family Medical History: Unable to Obtain Additional Family Medical History / Comment(s): Pt does not know paternal father. General Exam Limitations: no limitations General appearance: alert, in no apparent distress, other (This is a well- developed, well-nourished adult female patient in no acute distress. Vital signs upon presentation are temperature 98.2F, pulse 95, respirations 18, blood pressure 117/73, pulse ox 97% on room air.) Eye exam: Present: normal appearance, PERRL, EOMI. Absent: scleral icterus, conjunctival injection, periorbital swelling ENT exam: Present: normal exam, normal oropharynx, mucous membranes moist Respiratory exam: Present: normal lung sounds bilaterally. Absent: respiratory distress, wheezes, rales, rhonchi, stridor Cardiovascular Exam: Present: regular rate, normal rhythm, normal heart sounds. Absent: systolic murmur, diastolic murmur, rubs, gallop, clicks GI/Abdominal exam: Present: soft, normal bowel sounds. Absent: distended, tenderness, guarding, rebound, rigid Neurological exam: Present: alert, oriented X3, CN II-XII intact, other (Strength in all 4 extremities is 5/5.) Psychiatric exam: Present: normal affect, normal mood Skin exam: Present: warm, dry, intact, normal color. Absent: rash Course Vital Signs 12/14/18 12/14/18 12/15/18 23:03 23:53 03:23 Temperature 98.3 F 98.1 F 97.9 F Pulse Rate 95 80 83 Respiratory 18 16 16 Rate Blood Pressure 117/73 106/68 105/67 O2 Sat by Pulse 97 99 98 Oximetry EKG Findings - EKG Comments: EKG Findings:: EKG obtained at 00 53 shows normal sinus rhythm with a ventricular rate of 70, SC interval 136, QRS duration 74, QT 390, QTC 421. No evidence of ST elevation or depression. Medical Decision Making - Medical Decision Making 23-year-old female patient presented to the emergency department today for evaluation of multiple syncopal episodes over the last 2 weeks. Physical examination is unremarkable. I did evaluate incision site which did reveal mostly serous drainage of the small amount of green drainage. This was sent for culture. Labs reviewed and are unremarkable. EKG showed normal sinus rhythm. Patient had no dizziness or episodes of syncope while in the department. She'll be discharged to follow up with cardiology for recheck on Monday. Return parameters discussed in detail. She is understanding and agrees with this plan. - Lab Data Result diagrams: 12/15/18 00:45 12/15/18 00:45 Lab Results 12/15/18 12/15/18 12/15/18 Range/Units 00:45 00:45 00:45 WBC 9.3 (3.8-10.6) k/uL RBC 4.35 (3.80-5.40) m/uL Hgb 13.7 (11.4-16.0) gm/dL Hct 42.7 (34.0-46.0) % MCV 98.3 (80.0-100.0) fL MCH 31.5 (25.0-35.0) pg MCHC 32.0 (31.0-37.0) g/dL RDW 13.9 (11.5-15.5) % Plt Count 188 (150-450) k/uL Neutrophils % 58 % Lymphocytes % 31 % Monocytes % 5 % Eosinophils % 3 % Basophils % 1 % Neutrophils # 5.4 (1.3-7.7) k/uL Lymphocytes # 2.9 (1.0-4.8) k/uL Monocytes # 0.5 (0-1.0) k/uL Eosinophils # 0.3 (0-0.7) k/uL Basophils # 0.1 (0-0.2) k/uL PT 9.7 (9.0-12.0) sec INR 0.9 (<1.2) APTT 28.3 (22.0-30.0) sec Sodium 139 (137-145) mmol/L Potassium 4.4 (3.5-5.1) mmol/L Chloride 102 (98-107) mmol/L Carbon Dioxide 28 (22-30) mmol/L Anion Gap 9 mmol/L BUN 13 (7-17) mg/dL Creatinine 0.76 (0.52-1.04) mg/dL Est GFR (CKD-EPI)AfAm >90 (>60 ml/min/1.73 sqM) Est GFR (CKD-EPI)NonAf >90 (>60 ml/min/1.73 sqM) Glucose 82 (74-99) mg/dL Calcium 9.5 (8.4-10.2) mg/dL Magnesium 2.1 (1.6-2.3) mg/dL Total Bilirubin 0.2 (0.2-1.3) mg/dL AST 20 (14-36) U/L ALT 23 (9-52) U/L Alkaline Phosphatase 68 (38-126) U/L Troponin I (0.000-0.034) ng/mL Total Protein 7.2 (6.3-8.2) g/dL Albumin 4.4 (3.5-5.0) g/dL Urine Color Urine Appearance (Clear) Urine pH (5.0-8.0) Ur Specific [place] (1.001-1.035) Urine Protein (Negative) Urine Glucose (UA) (Negative) Urine Ketones (Negative) Urine Blood (Negative) Urine Nitrite (Negative) Urine Bilirubin (Negative) Urine Urobilinogen (<2.0) mg/dL Ur Leukocyte Esterase (Negative) Urine HCG, Qual (Not Detectd) 12/15/18 12/15/18 12/15/18 Range/Units 00:45 00:45 00:45 WBC (3.8-10.6) k/uL RBC (3.80-5.40) m/uL Hgb (11.4-16.0) gm/dL Hct (34.0-46.0) % MCV (80.0-100.0) fL MCH (25.0-35.0) pg MCHC (31.0-37.0) g/dL RDW (11.5-15.5) % Plt Count (150-450) k/uL Neutrophils % % Lymphocytes % % Monocytes % % Eosinophils % % Basophils % % Neutrophils # (1.3-7.7) k/uL Lymphocytes # (1.0-4.8) k/uL Monocytes # (0-1.0) k/uL Eosinophils # (0-0.7) k/uL Basophils # (0-0.2) k/uL PT (9.0-12.0) sec INR (<1.2) APTT (22.0-30.0) sec Sodium (137-145) mmol/L Potassium (3.5-5.1) mmol/L Chloride (98-107) mmol/L Carbon Dioxide (22-30) mmol/L Anion Gap mmol/L BUN (7-17) mg/dL Creatinine (0.52-1.04) mg/dL Est GFR (CKD-EPI)AfAm (>60 ml/min/1.73 sqM) Est GFR (CKD-EPI)NonAf (>60 ml/min/1.73 sqM) Glucose (74-99) mg/dL Calcium (8.4-10.2) mg/dL Magnesium (1.6-2.3) mg/dL Total Bilirubin (0.2-1.3) mg/dL AST (14-36) U/L ALT (9-52) U/L Alkaline Phosphatase (38-126) U/L Troponin I <0.012 (0.000-0.034) ng/mL Total Protein (6.3-8.2) g/dL Albumin (3.5-5.0) g/dL Urine Color Colorless Urine Appearance Clear (Clear) Urine pH 7.0 (5.0-8.0) Ur Specific [place] 1.004 (1.001-1.035) Urine Protein Negative (Negative) Urine Glucose (UA) Negative (Negative) Urine Ketones Negative (Negative) Urine Blood Negative (Negative) Urine Nitrite Negative (Negative) Urine Bilirubin Negative (Negative) Urine Urobilinogen <2.0 (<2.0) mg/dL Ur Leukocyte Esterase Negative (Negative) Urine HCG, Qual Not Detected (Not Detectd) - Radiology Data Radiology results: report reviewed, image reviewed Two-view x-ray of the chest was obtained. Report was reviewed in its entirety. Impression by Dr. Hall shows normal chest with no change. Disposition Clinical Impression: Syncope Disposition: HOME SELF-CARE Condition: Good Instructions (If sedation given, give patient instructions): Syncope (ED) Additional Instructions: Increase fluids. Rest. Follow up with cardiology for further evaluation as soon as possible. Return to the emergency department immediately for any new, worsening, or concerning symptoms. Is patient prescribed a controlled substance at d/c from ED?: No Referrals: Steph Cabezas MD [Primary Care Provider] - 1-2 days Time of Disposition: 02:55
[2018-12-15 03:25] VITALS: BP 105/67; PULSE 83; TEMP 97.9
== END 2018-12-15 03:24 | disposition home or self-care (01) ==
LOC: EC 22:58
DX: R55 Syncope and collapse (principal); L76.82 Other postprocedural complications of skin and subcutaneous tissue; J45.909 Unspecified asthma, uncomplicated; K21.9 Gastro-esophageal reflux disease without esophagitis; F17.200 Nicotine dependence, unspecified, uncomplicated; Z79.51 Long term (current) use of inhaled steroids; Z79.899 Other long term (current) drug therapy; Z88.5 Allergy status to narcotic agent; Z88.8 Allergy status to other drugs, medicaments and biological substances; Z91.048 Other nonmedicinal substance allergy status
CPT/HCPCS: 36415; 71046; 80053; 81003; 81025; 83735; 84484; 85025; 85610; 85730; 87070; 87077; 87186; 87205; 93005; 96360; 99284

== ENCOUNTER 2019-06-21 23:42 | Emergency (ER) | payer OTHER ==
[2019-06-22 00:04] VITALS: BP 109/76; PULSE 81; RESP 16; TEMP 98.9
[2019-06-22] MEDS ORDERED: PHENAZOPYRIDINE 200 MG TAB PO STA (00:10)
[2019-06-22] MEDS ORDERED: ONDANSETRON ODT 4 MG TAB PO STA (00:10)
[2019-06-22 00:22] LABS: Appearance,Urine Turbid (Clear); Bacteria,Urine Moderate /hpf; Bilirubin,Urine Negative (Negative); Blood,Urine Small (Negative); Color,Urine Yellow; Glucose,Urine (UA) Negative (Negative); Ketones,Urine Negative (Negative); Leukocyte Esterase,Urine Large (Negative); Mucus,Urine Moderate /hpf; Nitrite,Urine Negative (Negative); Protein,Urine 1+ (Negative); RBC,Urine 24 /hpf (0-5); Specific Gravity,Urine 1.027 (1.001-1.035); Squamous Epithelial Cell,Urine 27 /hpf (0-4); WBC,Urine >182 /hpf (0-5)
[2019-06-22] MEDS ORDERED: CEPHALEXIN 500MG STARTER PACK 4 CAP BTL PO STA (00:27)
--- NOTE | 2019-06-22 00:29 | ED ---
Female Urogenital HPI - General Chief complaint: Urogenital Stated complaint: Nausea, UTI Time Seen by Provider: 06/21/19 23:59 Source: patient, EMS Mode of arrival: EMS Limitations: no limitations - History of Present Illness Initial comments: 24-year-old female patient presents to the emergency department today for evaluation of dysuria, suprapubic cramping, and urinary frequency. Patient is concerned she may have a urinary tract infection. States she has been nauseated throughout the day and feeling lightheaded. Denies any fever or chills. Denies any back pain. States she has had urinary tract infections in the past. She denies any vaginal bleeding, discharge, or itching. She has no concerns for sexually transmitted infections. Patient denies any recent rash, cough, shortness of breath, chest pain, diarrhea, constipation, back pain, numbness, tingling, dizziness, weakness, headache, visual changes, or any other complaints. - Related Data Home Medications Medication Instructions Recorded Confirmed Albuterol Inhaler (Bulk) [Ventolin 2 puff INHALATION Q4-6H PRN 04/17/17 11/27/18 Hfa Inhaler (Bulk)] Biotin 5 mg PO DAILY 11/22/18 11/27/18 Cannabidiol (Cbd) Extract 1 dose PO DIRECTED PRN 11/22/18 11/27/18 [Epidiolex] Prazosin [Minipress] 5 mg PO HS 11/22/18 11/27/18 Venlafaxine HCl [Effexor XR] 150 mg PO DAILY 11/22/18 11/27/18 Sulfamethox-Tmp 800-160Mg [Bactrim 1 tab PO Q12HR 11/27/18 11/27/18 DS 800-160 mg] Previous Rx's Medication Instructions Recorded Acetaminophen with Codeine 1 tab PO Q4H PRN 3 Days #18 tab 11/27/18 [Tylenol w/codeine #3] Docusate [Colace] 100 mg PO BID #20 capsule 11/27/18 Cephalexin [Keflex] 500 mg PO Q6H #28 cap 06/22/19 Cephalexin [Keflex] 500 mg PO Q6H #28 cap 06/22/19 Ondansetron [Zofran ODT] 4 mg PO Q8HR PRN #10 tab 04/11/20 Ondansetron [Zofran ODT] 4 mg PO Q8HR PRN #10 tab 06/22/19 Allergies Allergy/AdvReac Type Severity Reaction Status Date / Time adhesive AdvReac Unknown Rash/Hives, Verified 12/14/18 23:07 Sores gabapentin AdvReac Unknown Verified 12/14/18 23:07 hydrocodone [From [place]] AdvReac Nausea & Verified 12/14/18 23:07 Vomiting/HALLUCINATIONS Review of Systems ROS Statement: Those systems with pertinent positive or pertinent negative responses have been documented in the HPI. ROS Other: All systems not noted in ROS Statement are negative. Past Medical History Past Medical History: Asthma, GERD/Reflux, Osteoarthritis (OA) Additional Past Medical History / Comment(s): IBS/CONSTIPATION, MIGRAINES, HIATAL HERNIA, PILONIDAL CYST History of Any Multi-Drug Resistant Organisms: None Reported Past Surgical History: Tonsillectomy Additional Past Surgical History / Comment(s): EGDs/colonoscopies, stye removed from L eye., STATES LAPRASCOPIC SURGERY FOR LESIONS & CYSTS ON UTERUS AND OVARIES, pylonidal cyst removal Past Anesthesia/Blood Transfusion Reactions: No Reported Reaction Past Psychological History: Anxiety, Depression, PTSD, Schizophrenia Smoking Status: Current every day smoker Past Alcohol Use History: None Reported Past Drug Use History: Marijuana - Past Family History Sister(s) Family Medical History: Fibromyalgia Mother Additional Family Medical History / Comment(s): Mother has osteoporosis, migraines, depression, anxiety and ovarian cysts. Father History Unknown: Yes Family Medical History: Unable to Obtain Additional Family Medical History / Comment(s): Pt does not know paternal father. General Exam Limitations: no limitations General appearance: alert, in no apparent distress, other (This is a well- developed, well-nourished adult female patient in no acute distress. Vital signs upon presentation are temperature 98.9F, pulse 81, respirations 16, blood pressure 109/76, pulse ox 98% on room air.) Eye exam: Present: normal appearance, PERRL, EOMI. Absent: scleral icterus, conjunctival injection, periorbital swelling ENT exam: Present: normal exam, normal oropharynx, mucous membranes moist Respiratory exam: Present: normal lung sounds bilaterally. Absent: respiratory distress, wheezes, rales, rhonchi, stridor Cardiovascular Exam: Present: regular rate, normal rhythm, normal heart sounds. Absent: systolic murmur, diastolic murmur, rubs, gallop, clicks GI/Abdominal exam: Present: soft, normal bowel sounds. Absent: distended, tenderness, guarding, rebound, rigid Back exam: Present: normal inspection, CVA tenderness (R). Absent: CVA tenderness (L) Neurological exam: Present: alert, oriented X3, CN II-XII intact Psychiatric exam: Present: normal affect, normal mood Skin exam: Present: warm, dry, intact, normal color. Absent: rash Course Vital Signs 06/22/19 00:01 Temperature 98.9 F Pulse Rate 81 Respiratory 16 Rate Blood Pressure 109/76 O2 Sat by Pulse 98 Oximetry Medical Decision Making - Medical Decision Making 24-year-old female patient presented to the emergency department today for evaluation of dysuria, urinary frequency, urinary urgency. Physical examination did reveal some mild suprapubic tenderness. Right-sided CVA tenderness. She is afebrile. No vomiting. Denies concern for sexually transmitted infections and declines testing. Urinalysis did show evidence for urinary tract infection. She'll be started on Keflex and given a prescription for Zofran. She is instructed to increase fluids and rest. She is instructed to follow-up with her primary care physician for recheck in 1-2 days. Return parameters discussed in detail. She verbalizes understanding and agrees with this plan. - Lab Data Lab Results 06/21/19 06/22/19 Range/Units 23:56 00:10 Urine Color Yellow Urine Appearance Turbid H (Clear) Urine pH 6.0 (5.0-8.0) Ur Specific [place] 1.027 (1.001-1.035) Urine Protein 1+ H (Negative) Urine Glucose (UA) Negative (Negative) Urine Ketones Negative (Negative) Urine Blood Small H (Negative) Urine Nitrite Negative (Negative) Urine Bilirubin Negative (Negative) Urine Urobilinogen 3.0 (<2.0) mg/dL Ur Leukocyte Esterase Large H (Negative) Urine RBC 24 H (0-5) /hpf Urine WBC >182 H (0-5) /hpf Ur Squamous Epith Cells 27 H (0-4) /hpf Urine Bacteria Moderate H (None) /hpf Urine Mucus Moderate H (None) /hpf Urine HCG, Qual Not Detected (Not Detectd) Disposition Clinical Impression: Urinary tract infection Disposition: HOME SELF-CARE Condition: Good Instructions (If sedation given, give patient instructions): Urinary Tract Infection in Women (ED) Additional Instructions: Increase fluids, especially water. Complete antibiotic prescription in full. Take zofran as needed for nausea. Follow up with your primary care physician for further evaluation as soon as possible. Return to the emergency department immediately for any new, worsening, or concerning symptoms. Prescriptions: Cephalexin [Keflex] 500 mg PO Q6H #28 cap Cephalexin [Keflex] 500 mg PO Q6H #28 cap Ondansetron [Zofran ODT] 4 mg PO Q8HR PRN #10 tab PRN Reason: Nausea Ondansetron [Zofran ODT] 4 mg PO Q8HR PRN #10 tab PRN Reason: Nausea Is patient prescribed a controlled substance at d/c from ED?: No Referrals: Steph Cabezas MD [Primary Care Provider] - 1-2 days Time of Disposition: 00:29
== END 2019-06-22 00:42 | disposition home or self-care (01) ==
LOC: EC 23:42
DX: N39.0 Urinary tract infection, site not specified (principal); J45.909 Unspecified asthma, uncomplicated; F41.9 Anxiety disorder, unspecified; F32.9 Major depressive disorder, single episode, unspecified; F17.200 Nicotine dependence, unspecified, uncomplicated; Z79.899 Other long term (current) drug therapy; Z91.048 Other nonmedicinal substance allergy status; Z88.8 Allergy status to other drugs, medicaments and biological substances; Z88.5 Allergy status to narcotic agent
CPT/HCPCS: 81001; 81025; 87077; 87086; 87186; 99283

== ENCOUNTER 2019-10-01 14:41 | Emergency (ER) | payer OTHER ==
[2019-10-01 14:47] VITALS: TEMP 98.6
[2019-10-01] MEDS ORDERED: ONDANSETRON ODT 4 MG TAB PO STA (14:57)
--- NOTE | 2019-10-01 15:22 | ED ---
URI HPI - General Chief Complaint: Upper Respiratory Infection Stated Complaint: Congestion,Sore Throat, 8wks Preg Time Seen by Provider: 10/01/19 14:50 Source: patient, RN notes reviewed Mode of arrival: ambulatory Limitations: no limitations - History of Present Illness Initial Comments: This a 24-year-old female presents emergency Department chief complaint of runny nose sore throat cough. Patient states symptoms started last few days. She denies any fevers or chills she states she feels achy she has the flu. Patient states that she currently is a weeks she is A0 currently seen Dr. Roque. Patient has been having some issues with nausea vomiting morning sickness in which her LEAD BURNER has started her on Zofran. She denies any vaginal bleeding or vaginal discharge no dysuria no hematuria. Patient denies any flank pain, back pain, chest pain or shortness of breath. - Related Data Home Medications Medication Instructions Recorded Confirmed No Known Home Medications 10/01/19 10/01/19 Allergies Allergy/AdvReac Type Severity Reaction Status Date / Time adhesive AdvReac Unknown Rash/Hives, Verified 10/01/19 15:47 Sores gabapentin AdvReac Migraine Verified 10/01/19 15:47 hydrocodone [From [place]] AdvReac Nausea & Verified 10/01/19 15:47 Vomiting/HALLUCINATIONS/migraine Review of Systems ROS Statement: Those systems with pertinent positive or pertinent negative responses have been documented in the HPI. ROS Other: All systems not noted in ROS Statement are negative. Past Medical History Past Medical History: Asthma, GERD/Reflux, Osteoarthritis (OA) Additional Past Medical History / Comment(s): IBS/CONSTIPATION, MIGRAINES, HIATAL HERNIA, PILONIDAL CYST History of Any Multi-Drug Resistant Organisms: None Reported Past Surgical History: Tonsillectomy Additional Past Surgical History / Comment(s): EGDs/colonoscopies, stye removed from L eye., STATES LAPRASCOPIC SURGERY FOR LESIONS & CYSTS ON UTERUS AND OVARIES, pylonidal cyst removal Past Anesthesia/Blood Transfusion Reactions: No Reported Reaction Past Psychological History: Anxiety, Depression, PTSD, Schizophrenia Smoking Status: Current every day smoker Past Alcohol Use History: None Reported Past Drug Use History: Marijuana - Past Family History Sister(s) Family Medical History: Fibromyalgia Mother Additional Family Medical History / Comment(s): Mother has osteoporosis, migraines, depression, anxiety and ovarian cysts. Father History Unknown: Yes Family Medical History: Unable to Obtain Additional Family Medical History / Comment(s): Pt does not know paternal father. General Exam Limitations: no limitations General appearance: alert, in no apparent distress Head exam: Present: atraumatic, normocephalic, normal inspection Eye exam: Present: normal appearance, PERRL, EOMI. Absent: scleral icterus, conjunctival injection, periorbital swelling ENT exam: Present: mucous membranes moist, TM's normal bilaterally, normal external ear exam. Absent: normal exam, normal oropharynx (Mild postnasal drainage, minimal erythema) Neck exam: Present: normal inspection, full ROM. Absent: tenderness, meningismus, lymphadenopathy Respiratory exam: Present: normal lung sounds bilaterally. Absent: respiratory distress, wheezes, rales, rhonchi, stridor Cardiovascular Exam: Present: regular rate, normal rhythm, normal heart sounds. Absent: systolic murmur, diastolic murmur, rubs, gallop, clicks GI/Abdominal exam: Present: soft, normal bowel sounds. Absent: distended, tenderness, guarding, rebound, rigid Neurological exam: Present: alert, oriented X3 Skin exam: Present: warm, dry, intact, normal color. Absent: rash Course Vital Signs 10/01/19 14:44 Temperature 98.6 F Pulse Rate 98 Respiratory 16 Rate Blood Pressure 110/75 O2 Sat by Pulse 99 Oximetry Medical Decision Making - Medical Decision Making 24 over presented for runny nose sore throat first story infection type symptoms x-rays are negative patient requested Covid which this was performed. Patient does have ongoing morning sickness and which this is being treated by her LEAD BURNER with [facility]. Disposition Clinical Impression: URI (upper respiratory infection), Nausea/vomiting in Disposition: HOME SELF-CARE Condition: Stable Instructions (If sedation given, give patient instructions): Upper Respiratory Infection (ED) Additional Instructions: Please return to the Emergency Department if symptoms worsen or any other concerns. Is patient prescribed a controlled substance at d/c from ED?: No Referrals: Steph Cabezas MD [Primary Care Provider] - 1-2 days Time of Disposition: 15:51
--- NOTE | 2019-10-01 15:22 | XR ---
EXAMINATION TYPE: XR chest 2V DATE OF EXAM: 10/01/2019 COMPARISON: 12/15/2018 HISTORY: 24-year-old female with cough TECHNIQUE: PA and lateral views FINDINGS: The cardiomediastinal silhouette, aorta, and pulmonary vasculature are within normal limits. Lungs an d pleural spaces are clear. IMPRESSION: No acute cardiopulmonary process.
[2019-10-01 15:59] VITALS: BP 111/77; PULSE 83; RESP 18
== END 2019-10-01 15:54 | disposition home or self-care (01) ==
LOC: EC 14:41
DX: O21.9 Vomiting of pregnancy, unspecified (principal); O99.511 Diseases of the respiratory system complicating pregnancy, first trimester; J06.9 Acute upper respiratory infection, unspecified; O99.330 Smoking (tobacco) complicating pregnancy, unspecified trimester; F17.200 Nicotine dependence, unspecified, uncomplicated; Z3A.08 8 weeks gestation of pregnancy; Z91.048 Other nonmedicinal substance allergy status; Z88.5 Allergy status to narcotic agent; Z88.8 Allergy status to other drugs, medicaments and biological substances
CPT/HCPCS: 71046; 99283; U0003

== ENCOUNTER 2019-10-05 22:37 | Emergency (ER) | payer OTHER ==
[2019-10-05 22:46] VITALS: BP 106/73; PULSE 95; RESP 15; TEMP 98.2
[2019-10-05] MEDS ORDERED: AMOXIC-POT CLAV 875-125MG 1 EACH TAB PO STA (23:25)
--- NOTE | 2019-10-05 23:27 | ED ---
ENT HPI - General Chief complaint: ENT Stated complaint: Sinus pain Time Seen by Provider: 10/05/19 23:03 Source: patient Mode of arrival: ambulatory Limitations: no limitations - History of Present Illness Initial comments: Patient is 24-year-old female presenting to emergency Department with chief complaint of sinus pain. Patient states she's been having sinus congestion for over a week. Patient reports green bilateral nasal discharge. Patient reports nasal pressure in the frontal maxillary sinuses. Patient feels like it's all located in her face. Patient states she is 6 weeks and has only been taking Benadryl minimal improvement in her symptoms. Patient also reports a sensation of fullness in her ears. She denies any fevers or chills. She was a smoker prior to . - Related Data Previous Rx's Medication Instructions Recorded Amoxicillin/Potassium Clav 1 tab PO Q12HR #14 tab 10/05/19 [Augmentin 875-125 Tablet] Allergies Allergy/AdvReac Type Severity Reaction Status Date / Time adhesive AdvReac Unknown Rash/Hives, Verified 10/05/19 22:46 Sores gabapentin AdvReac Migraine Verified 10/05/19 22:46 hydrocodone [From [place]] AdvReac Nausea & Verified 10/05/19 22:46 Vomiting/HALLUCINATIONS/migraine Review of Systems ROS Statement: Those systems with pertinent positive or pertinent negative responses have been documented in the HPI. ROS Other: All systems not noted in ROS Statement are negative. Past Medical History Past Medical History: Asthma, GERD/Reflux, Osteoarthritis (OA) Additional Past Medical History / Comment(s): IBS/CONSTIPATION, MIGRAINES, HIATAL HERNIA, PILONIDAL CYST, alopecia History of Any Multi-Drug Resistant Organisms: None Reported Past Surgical History: Tonsillectomy Additional Past Surgical History / Comment(s): EGDs/colonoscopies, stye removed from L eye., STATES LAPRASCOPIC SURGERY FOR LESIONS & CYSTS ON UTERUS AND OVARIES, pylonidal cyst removal Past Anesthesia/Blood Transfusion Reactions: No Reported Reaction Past Psychological History: Anxiety, Depression, PTSD, Schizophrenia Smoking Status: Current every day smoker Past Alcohol Use History: None Reported Past Drug Use History: Marijuana - Past Family History Sister(s) Family Medical History: Fibromyalgia Mother Additional Family Medical History / Comment(s): Mother has osteoporosis, migraines, depression, anxiety and ovarian cysts. Father History Unknown: Yes Family Medical History: Unable to Obtain Additional Family Medical History / Comment(s): Pt does not know paternal father. General Exam Limitations: no limitations General appearance: alert, appears intoxicated Head exam: Present: atraumatic, normocephalic, normal inspection Eye exam: Present: normal appearance, PERRL, EOMI Pupils: Present: normal accommodation ENT exam: Present: normal exam, normal oropharynx, mucous membranes moist, TM's normal bilaterally, normal external ear exam, other (Maxillary and frontal sinus tenderness) Neck exam: Present: normal inspection, full ROM. Absent: tenderness Respiratory exam: Present: normal lung sounds bilaterally. Absent: respiratory distress, wheezes, rales Cardiovascular Exam: Present: regular rate, normal rhythm, normal heart sounds Extremities exam: Present: normal inspection, full ROM, normal capillary refill. Absent: tenderness Back exam: Present: normal inspection, full ROM. Absent: tenderness Neurological exam: Present: alert, oriented X3 Psychiatric exam: Present: normal affect, normal mood Skin exam: Present: warm, dry, intact, normal color Course Vital Signs 10/05/19 22:42 Temperature 98.2 F Pulse Rate 95 Respiratory 15 Rate Blood Pressure 106/73 O2 Sat by Pulse 99 Oximetry Medical Decision Making - Medical Decision Making Patient is 24-year-old female presenting to emergency prior chief complaint sinus pain. Exam patient has maxillary or frontal sinus tenderness. Green bilateral nasal discharge. Symptoms ongoing for over one week. Patient started on Augmentin. Antibiotic is category B. Patient discharged with a seven-day course of antibiotics. Return parameters were thoroughly discussed with patient was a agreeable. Case discussed with physician. Disposition Clinical Impression: Sinusitis Disposition: HOME SELF-CARE Condition: Stable Instructions (If sedation given, give patient instructions): Sinusitis (ED) Additional Instructions: Follow-up with primary care. Return to emergency department if symptoms worsen. Prescriptions: Amoxicillin/Potassium Clav [Augmentin 875-125 Tablet] 1 tab PO Q12HR #14 tab Is patient prescribed a controlled substance at d/c from ED?: No Referrals: Steph Cabezas MD [Primary Care Provider] - 1-2 days Time of Disposition: 23:27
== END 2019-10-05 23:33 | disposition home or self-care (01) ==
LOC: EC 22:37
DX: O99.511 Diseases of the respiratory system complicating pregnancy, first trimester (principal); J32.9 Chronic sinusitis, unspecified; J34.89 Other specified disorders of nose and nasal sinuses; O99.331 Smoking (tobacco) complicating pregnancy, first trimester; F17.200 Nicotine dependence, unspecified, uncomplicated; Z91.048 Other nonmedicinal substance allergy status; Z88.8 Allergy status to other drugs, medicaments and biological substances; Z88.5 Allergy status to narcotic agent; Z3A.01 Less than 8 weeks gestation of pregnancy
CPT/HCPCS: 99283

== ENCOUNTER 2020-01-25 18:15 | Emergency (ER) | payer OTHER ==
[2020-01-25 18:22] VITALS: TEMP 99
[2020-01-25] MEDS ORDERED: LIDOCAINE 1% INJ 10MG/ML (20 ML MDV) SQ ONE (19:11)
--- NOTE | 2020-01-25 19:55 | ED ---
General Adult HPI - General Chief complaint: Recheck/Abnormal Lab/Rx Stated complaint: hemorrhoid Time Seen by Provider: 01/25/20 18:36 Source: patient Mode of arrival: ambulatory Limitations: no limitations - History of Present Illness Initial comments: Patient is a 24 female presents emergency room with reported rectal pain. Patient is currently 24 weeks . States that she has had issues with hemorrhoids and as of this morning 1 became extremely painful and hard. She reports that she has been using cortisone cream and doing sitz bath however has not had any improvement in her symptoms. She denies any rectal bleeding. No fevers or chills. Denies any abdominal pain, vaginal bleeding or discharge. No dysuria, hematuria or diplopia voiding. Patient does see Dr. Roque. No other alleviating, precipitating modifying factors - Related Data Previous Rx's Medication Instructions Recorded Amoxicillin/Potassium Clav 1 tab PO Q12HR #14 tab 10/05/19 [Augmentin 875-125 Tablet] Docusate [Colace] 100 mg PO BID #30 capsule 01/25/20 Hydrocortisone [Anusol-Hc] 1 applic RECTAL BID #30 gm 01/25/20 Allergies Allergy/AdvReac Type Severity Reaction Status Date / Time adhesive AdvReac Unknown Rash/Hives, Verified 01/25/20 18:22 Sores gabapentin AdvReac Migraine Verified 01/25/20 18:22 hydrocodone [From [place]] AdvReac Nausea & Verified 01/25/20 18:22 Vomiting/HALLUCINATIONS/migraine Review of Systems ROS Statement: Those systems with pertinent positive or pertinent negative responses have been documented in the HPI. ROS Other: All systems not noted in ROS Statement are negative. Past Medical History Past Medical History: Asthma, GERD/Reflux, Osteoarthritis (OA) Additional Past Medical History / Comment(s): IBS/CONSTIPATION, MIGRAINES, HIATAL HERNIA, PILONIDAL CYST, alopecia History of Any Multi-Drug Resistant Organisms: None Reported Past Surgical History: Tonsillectomy Additional Past Surgical History / Comment(s): EGDs/colonoscopies, stye removed from L eye., STATES LAPRASCOPIC SURGERY FOR LESIONS & CYSTS ON UTERUS AND OVARIES, pylonidal cyst removal Past Anesthesia/Blood Transfusion Reactions: No Reported Reaction Past Psychological History: Anxiety, Depression, PTSD, Schizophrenia Smoking Status: Current every day smoker Past Alcohol Use History: None Reported Past Drug Use History: Marijuana - Past Family History Sister(s) Family Medical History: Fibromyalgia Mother Additional Family Medical History / Comment(s): Mother has osteoporosis, migraines, depression, anxiety and ovarian cysts. Father History Unknown: Yes Family Medical History: Unable to Obtain Additional Family Medical History / Comment(s): Pt does not know paternal father. General Exam Limitations: no limitations Course Vital Signs 01/25/20 01/25/20 18:19 20:16 Temperature 99.0 F Pulse Rate 106 H 95 Respiratory 18 16 Rate Blood Pressure 117/72 119/87 O2 Sat by Pulse 98 97 Oximetry Procedures - Incision & Drainage Consent Obtained: verbal consent Indication: time out performed. Incision and drainage of thrombosed hemorrhoid performe Site: buttock Size (cm): 2 Anesthetic Used: lidocaine 1% Amount (mLs): 6 I&D Cleaning Method: Alcohol Wipe Sterile Field Used?: Yes Scalpel Used: #11 Needle Aspiration Performed?: No Irrigation Performed?: No I&D Drainage Obtained: Blood Patient Tolerated Procedure: well, no complications Medical Decision Making - Medical Decision Making Upon arrival patient is placed into room 21. A thorough history and physical exam was performed. Patient does have a thrombosed rectal hemorrhoid which has been present for less than 48 hours. I did discuss the treatment options. Patient does opt for incision and drainage at this time. Local anesthetic was provided and a elliptical incision was made. Blood clot was expressed from the hemorrhoid. I did recommend postprocedure care to include warm baths and using mild soap. The patient will be given a prescription for Anusol cream. She is to follow-up with her primary care physician in 2-4 days. Recommend that she follow up with her ENGINE HOUSE HELPER for which the patient understood. Return to the emergency room for any new or worsening symptoms. Patient was discharged home in stable condition Disposition Clinical Impression: Thrombosed hemorrhoids Disposition: HOME SELF-CARE Condition: Stable Instructions (If sedation given, give patient instructions): Hemorrhoids (ED) Additional Instructions: Please follow-up with your primary care doctor. Keep the area clean and dry. You may soak in warm water. Return to the emergency room for any pustular drainage or fevers. Use the Anusol cream and stool softener. Prescriptions: Hydrocortisone [Anusol-Hc] 1 applic RECTAL BID #30 gm Docusate [Colace] 100 mg PO BID #30 capsule Is patient prescribed a controlled substance at d/c from ED?: No Referrals: Steph Cabezas MD [Primary Care Provider] - 1-2 days Time of Disposition: 19:55
[2020-01-25 20:17] VITALS: BP 119/87; PULSE 95; RESP 16
== END 2020-01-25 20:11 | disposition home or self-care (01) ==
LOC: EC 18:15
DX: O22.42 Hemorrhoids in pregnancy, second trimester (principal); O99.332 Smoking (tobacco) complicating pregnancy, second trimester; F17.200 Nicotine dependence, unspecified, uncomplicated; Z88.8 Allergy status to other drugs, medicaments and biological substances; Z91.048 Other nonmedicinal substance allergy status; Z3A.24 24 weeks gestation of pregnancy
CPT/HCPCS: 99282; 46083; J2001

== ENCOUNTER 2020-03-23 23:36 | Emergency (ER) | payer OTHER ==
[2020-03-23 23:55] VITALS: TEMP 98.8
[2020-03-24] MEDS ORDERED: FAMOTIDINE 20 MG TAB PO STA (00:30)
[2020-03-24] MEDS ORDERED: diphenhydrAMINE 25 MG CAP PO STA (00:30)
--- NOTE | 2020-03-24 00:41 | ED ---
General Adult HPI - General Chief complaint: Skin/Abscess/Foreign Body Stated complaint: Rash, 33 weeks pgt Time Seen by Provider: 03/23/20 23:57 Source: patient Mode of arrival: ambulatory Limitations: no limitations - History of Present Illness Initial comments: 24-year-old female currently 33 weeks presents to the emergency room for a chief complaint of rash. Patient reports she has had a rash and itching on her abdomen and arms for about 2-3 weeks. States that she did see her TEST TECHNICIAN who told her to take Benadryl. Her primary care provider also told her this. Patient presents to the emergency department today he has she has more red bumps on her abdomen. She denies any other complaints. Denies any abdominal pain or vaginal bleeding. Patient has no other complaints at this time including shortness of breath, chest pain, abdominal pain, nausea or vomiting, headache, or visual changes. - Related Data Previous Rx's Medication Instructions Recorded Amoxicillin/Potassium Clav 1 tab PO Q12HR #14 tab 10/05/19 [Augmentin 875-125 Tablet] Docusate [Colace] 100 mg PO BID #30 capsule 01/25/20 Hydrocortisone [Anusol-Hc] 1 applic RECTAL BID #30 gm 01/25/20 Famotidine [Pepcid] 20 mg PO DAILY #14 tablet 03/24/20 Allergies Allergy/AdvReac Type Severity Reaction Status Date / Time adhesive AdvReac Unknown Rash/Hives, Verified 03/23/20 23:55 Sores gabapentin AdvReac Migraine Verified 03/23/20 23:55 hydrocodone [From [place]] AdvReac Nausea & Verified 03/23/20 23:55 Vomiting/HALLUCINATIONS/migraine Review of Systems ROS Statement: Those systems with pertinent positive or pertinent negative responses have been documented in the HPI. ROS Other: All systems not noted in ROS Statement are negative. Past Medical History Past Medical History: Asthma, GERD/Reflux, Osteoarthritis (OA) Additional Past Medical History / Comment(s): IBS/CONSTIPATION, MIGRAINES, HIATAL HERNIA, PILONIDAL CYST, alopecia History of Any Multi-Drug Resistant Organisms: None Reported Past Surgical History: Tonsillectomy Additional Past Surgical History / Comment(s): EGDs/colonoscopies, stye removed from L eye., STATES LAPRASCOPIC SURGERY FOR LESIONS & CYSTS ON UTERUS AND OVARIES, pylonidal cyst removal Past Anesthesia/Blood Transfusion Reactions: No Reported Reaction Past Psychological History: Anxiety, Depression, PTSD, Schizophrenia Smoking Status: Current every day smoker Past Alcohol Use History: None Reported Past Drug Use History: Marijuana - Past Family History Sister(s) Family Medical History: Fibromyalgia Mother Additional Family Medical History / Comment(s): Mother has osteoporosis, migraines, depression, anxiety and ovarian cysts. Father History Unknown: Yes Family Medical History: Unable to Obtain Additional Family Medical History / Comment(s): Pt does not know paternal father. General Exam Limitations: no limitations General appearance: alert, in no apparent distress Head exam: Present: atraumatic, normal inspection Eye exam: Present: normal appearance, PERRL, EOMI. Absent: scleral icterus, co njunctival injection ENT exam: Present: normal exam, mucous membranes moist Neck exam: Present: normal inspection, full ROM. Absent: tenderness, meni ngismus, lymphadenopathy Respiratory exam: Present: normal lung sounds bilaterally. Absent: respiratory distress, wheezes, rales, rhonchi, stridor Cardiovascular Exam: Present: regular rate, normal rhythm, normal heart sounds. Absent: systolic murmur, diastolic murmur, rubs, gallop, clicks GI/Abdominal exam: Present: soft, normal bowel sounds. Absent: distended, tenderness, guarding, rebound, rigid Skin exam: Present: warm, dry, intact, normal color, rash (Patient has small erythematous macules noted to abdomen and bilateral arms.). Absent: petechiae Course Vital Signs 03/23/20 23:51 Temperature 98.8 F Pulse Rate 111 H Respiratory 18 Rate Blood Pressure 136/76 O2 Sat by Pulse 98 Oximetry Medical Decision Making - Medical Decision Making Vitals are stable. Patient is well-appearing. Patient does have erythematous macules on her abdomen and arms that are pruritic. No swelling of the lips tongue or throat. No lesions on the palms or soles. Patient has been taking Benadryl as directed by her TEST TECHNICIAN but it does not seem to be helping. Patient will be started on Pepcid. She was directed to follow up with her TEST TECHNICIAN this week. If she has worsening symptoms she'll return to the emergency room. Disposition Clinical Impression: Rash Disposition: HOME SELF-CARE Condition: Good Instructions (If sedation given, give patient instructions): Acute Rash (ED) Additional Instructions: Please take Benadryl as directed by your doctor. You may also take Pepcid. Follow-up with your TEST TECHNICIAN this week. Return to the emergency room for any worsening symptoms. Prescriptions: Famotidine [Pepcid] 20 mg PO DAILY #14 tablet Is patient prescribed a controlled substance at d/c from ED?: No Referrals: Steph Cabezas MD [Primary Care Provider] - 1-2 days Time of Disposition: 00:38
[2020-03-24 00:48] VITALS: BP 124/76; PULSE 98; RESP 20
== END 2020-03-24 00:48 | disposition home or self-care (01) ==
LOC: EC 23:36
DX: O99.713 Diseases of the skin and subcutaneous tissue complicating pregnancy, third trimester (principal); L29.9 Pruritus, unspecified; O99.333 Smoking (tobacco) complicating pregnancy, third trimester; F17.200 Nicotine dependence, unspecified, uncomplicated; Z88.5 Allergy status to narcotic agent; Z88.8 Allergy status to other drugs, medicaments and biological substances; Z91.048 Other nonmedicinal substance allergy status; Z3A.33 33 weeks gestation of pregnancy
CPT/HCPCS: 99282

== ENCOUNTER 2020-03-28 00:55 | Emergency (ER) | payer OTHER ==
[2020-03-28 01:02] VITALS: BP 128/70; PULSE 111; RESP 22; TEMP 98.7
[2020-03-28] MEDS ORDERED: diphenhydrAMINE 2% CREAM 28.4 GM TUBE TOPICAL STA (01:28)
[2020-03-28] MEDS ORDERED: ACETAMINOPHEN TAB 325 MG TAB PO STA (01:28)
[2020-03-28] MEDS ORDERED: AMOXIC-POT CLAV 875MG STARTER PACK 2 TAB BTL PO STA (01:28)
--- NOTE | 2020-03-28 01:30 | ED ---
General Adult HPI - General Chief complaint: Animal Bite Stated complaint: Cat scratch Time Seen by Provider: 03/28/20 01:05 Source: patient, family Mode of arrival: ambulatory Limitations: no limitations - History of Present Illness Initial comments: 24-year-old female patient presents to the emergency department today for evaluation of cat bite to the left hand. States she was bit about 40 minutes ago by her sisters cat. There is no concern for rabies. She is also reporting rash over her abdomen and trunk with a few lesions on her left arm in her foot. She is 34 weeks , . Denies any itching to her hands or feet. Denies any exposure to new substances. States that her rash has been evaluated by her DIRECTOR EXPORT and by an emergency provider at a visit a few days ago. She was given Benadryl and Pepcid, states is not helping. She denies any worsening of the rash. Denies any blistering. Denies fever or chills. Patient is up to date on tetanus vaccine. She denies any current abdominal pain, vaginal bleeding, or vaginal discharge. States she is feeling good movement. Patient denies any recent cough, shortness of breath, chest pain, nausea, vomiting, diarrhea, constipation, back pain, numbness, tingling, dizziness, weakness, hematuria, dysuria, urinary urgency, urinary frequency, headache, visual changes, or any other complaints. - Related Data Previous Rx's Medication Instructions Recorded Amoxicillin/Potassium Clav 1 tab PO Q12HR #14 tab 10/05/19 [Augmentin 875-125 Tablet] Docusate [Colace] 100 mg PO BID #30 capsule 01/25/20 Hydrocortisone [Anusol-Hc] 1 applic RECTAL BID #30 gm 01/25/20 Famotidine [Pepcid] 20 mg PO DAILY #14 tablet 03/24/20 Amoxic-Pot Clav 875-125Mg 1 tab PO Q12HR #14 tablet 03/28/20 [Augmentin 875-125] Allergies Allergy/AdvReac Type Severity Reaction Status Date / Time adhesive AdvReac Unknown Rash/Hives, Verified 03/28/20 01:02 Sores gabapentin AdvReac Migraine Verified 03/28/20 01:02 hydrocodone [From [place]] AdvReac Nausea & Verified 03/28/20 01:02 Vomiting/HALLUCINATIONS/migraine Review of Systems ROS Statement: Those systems with pertinent positive or pertinent negative responses have been documented in the HPI. ROS Other: All systems not noted in ROS Statement are negative. Past Medical History Past Medical History: Asthma, GERD/Reflux, Osteoarthritis (OA) Additional Past Medical History / Comment(s): IBS/CONSTIPATION, MIGRAINES, HIATAL HERNIA, PILONIDAL CYST, alopecia History of Any Multi-Drug Resistant Organisms: None Reported Past Surgical History: Tonsillectomy Additional Past Surgical History / Comment(s): EGDs/colonoscopies, stye removed from L eye., STATES LAPRASCOPIC SURGERY FOR LESIONS & CYSTS ON UTERUS AND OVARIES, pylonidal cyst removal Past Anesthesia/Blood Transfusion Reactions: No Reported Reaction Past Psychological History: Anxiety, Depression, PTSD, Schizophrenia Smoking Status: Current every day smoker Past Alcohol Use History: None Reported Past Drug Use History: Marijuana - Past Family History Sister(s) Family Medical History: Fibromyalgia Mother Additional Family Medical History / Comment(s): Mother has osteoporosis, migraines, depression, anxiety and ovarian cysts. Father History Unknown: Yes Family Medical History: Unable to Obtain Additional Family Medical History / Comment(s): Pt does not know paternal father. General Exam Limitations: no limitations General appearance: alert, in no apparent distress, other (Physical well- developed, well-nourished adult female patient in no acute distress. Vital signs upon presentation are temperature 98.7F, pulse 111, respirations 22, blood pressure 128/70, pulse ox 99% on room air.) Respiratory exam: Present: normal lung sounds bilaterally. Absent: respiratory distress, wheezes, rales, rhonchi, stridor Cardiovascular Exam: Present: regular rate, normal rhythm, normal heart sounds. Absent: systolic murmur, diastolic murmur, rubs, gallop, clicks GI/Abdominal exam: Present: soft, normal bowel sounds, other (Gravid abdomen. There is rash noted over abdomen, one lesion to the left arm, erythematous papules. No vesicles, no drainage. Rash is non-petechial.). Absent: distended, tenderness, guarding, rebound, rigid Extremities exam: Present: full ROM, normal capillary refill, other (There are puncture wounds noted to the palm of the left hand over the hyperthenar eminence, a thin abrasion to the dorsal left hand. Mild soft tissue swelling. Skin is otherwise pink, warm, dry. Cap refills less than 3 seconds. Radial pulses 2+.). Absent: normal inspection, tenderness, pedal edema, joint swelling, calf tenderness Neurological exam: Present: alert, oriented X3, CN II-XII intact Psychiatric exam: Present: normal affect, normal mood Skin exam: Present: warm, dry, intact, normal color, rash (See abdominal exam) Course Vital Signs 03/28/20 00:56 Temperature 98.7 F Pulse Rate 111 H Respiratory 22 Rate Blood Pressure 128/70 O2 Sat by Pulse 99 Oximetry Medical Decision Making - Medical Decision Making 24-year-old female patient presents to the emergency department today for evaluation of Bite and rash. Physical examination did reveal puncture wounds to the palm of the left hand and abrasion to the dorsal left hand. There is also erythematous papules noted over the abdomen scattered. No surrounding erythema. Nonvesicular, non-petechial. Rash is itchy. Patient has no fever or chills. Rash is been going on for the last several days has been evaluated by her DIRECTOR EXPORT as well as another ER provider. She's been taking Benadryl and Pepcid without relief. We did discuss adding Benadryl cream topically. She is also educated regarding oatmeal baths and use of aloe after showering. She is instructed follow up with her DIRECTOR EXPORT as soon as possible for reevaluation of the rash. Did cleanse the wounds, started Augmentin for prophylaxis. She is instructed to follow-up with the primary care physician for reevaluation of the wounds in 1-2 days. Return parameters were discussed in detail. She verbalizes understanding and agrees this plan. Disposition Clinical Impression: Rash, Cat bite of left hand Disposition: HOME SELF-CARE Condition: Good Instructions (If sedation given, give patient instructions): Animal Bite (ED), Acute Rash (ED) Additional Instructions: Complete antibiotic prescription in full. Use Benadryl cream as directed for relief of itching. Follow-up with your DIRECTOR EXPORT for recheck as soon as possible to discuss rash further. If there are any changes or worsening symptoms return to the emergency department. Return for any other new, worsening, or concerning symptoms. Prescriptions: Amoxic-Pot Clav 875-125Mg [Augmentin 875-125] 1 tab PO Q12HR #14 tablet Is patient prescribed a controlled substance at d/c from ED?: No Referrals: Steph Cabezas MD [Primary Care Provider] - 1-2 days Time of Disposition: 01:30
== END 2020-03-28 01:47 | disposition home or self-care (01) ==
LOC: EC 00:55
DX: O9A.213 Injury, poisoning and certain other consequences of external causes complicating pregnancy, third trimester (principal); S61.452A Open bite of left hand, initial encounter; O99.333 Smoking (tobacco) complicating pregnancy, third trimester; F17.200 Nicotine dependence, unspecified, uncomplicated; Z88.5 Allergy status to narcotic agent; Z88.8 Allergy status to other drugs, medicaments and biological substances; Z91.048 Other nonmedicinal substance allergy status; W55.01XA Bitten by cat, initial encounter; W55.03XA Scratched by cat, initial encounter; Z3A.34 34 weeks gestation of pregnancy; Z90.722 Acquired absence of ovaries, bilateral
CPT/HCPCS: 99283

== ENCOUNTER 2020-05-04 09:46 | Inpatient (IN) | payer OTHER ==
[2020-04-29 10:10] VITALS: BMI 34.2
[2020-05-04] MEDS ORDERED: CITRIC ACID-SODIUM CITRATE 15 ML CUP PO ONE (11:14)
[2020-05-04] MEDS ORDERED: LACTATED RINGERS 1,000 ML IV ONE (11:14)
[2020-05-04] MEDS ORDERED: LACTATED RINGERS 1,000 ML IV SCH ×2 (11:15→13:45)
[2020-05-04 11:36] LABS: Basophils # (A) 0.1 k/uL (0-0.2); Basophils % (A) 0 %; Eosinophils # (A) 0.4 k/uL (0-0.7); Eosinophils % (A) 3 %; HCT 33.8 % (34.0-46.0); HGB 11.3 gm/dL (11.4-16.0); Lymphocytes # (A) 3.3 k/uL (1.0-4.8); Lymphocytes % (A) 23 %; MCH 31.9 pg (25.0-35.0); MCHC 33.5 g/dL (31.0-37.0); MCV 95.1 fL (80.0-100.0); Mean Platelet Volume 10.4; Monocytes # (A) 0.8 k/uL (0-1.0); Monocytes % (A) 6 %; Neutrophils # (A) 9.5 k/uL (1.3-7.7); Neutrophils % (A) 67 %; Platelet Count 247 k/uL (150-450); RBC 3.56 m/uL (3.80-5.40); RDW 13.9 % (11.5-15.5); WBC 14.2 k/uL (3.8-10.6)
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
[2020-05-04] MEDS ORDERED: MORPHINE SULFATE (PF) 0.3 MG/0.3 ML SYR ONE (12:45)
[2020-05-04] MEDS ORDERED: fentaNYL (PF) 50 MCG/ML 2 ML AMP ONE (12:45)
[2020-05-04] MEDS ORDERED: KETOROLAC 15 MG/ML 1 ML VIAL ONE (12:45)
[2020-05-04] MEDS ORDERED: ONDANSETRON 4 MG/2 ML VIAL ONE (12:45)
[2020-05-04] MEDS ORDERED: DEXAMETHASONE SOD PHOSPHATE 4 MG/ML 1 ML VIAL ONE (12:45)
[2020-05-04] MEDS ORDERED: diphenhydrAMINE 50 MG CAP PO PRN (13:33)
[2020-05-04] MEDS ORDERED: ZOLPIDEM 5 MG TAB PO PRN (13:33)
[2020-05-04] MEDS ORDERED: NALOXONE 0.4 MG/ML 1 ML VIAL IV PRN (13:33)
[2020-05-04] MEDS ORDERED: diphenhydrAMINE 25 MG CAP PO PRN (13:33)
[2020-05-04] MEDS ORDERED: ONDANSETRON 4 MG/2 ML VIAL IVP PRN (13:33)
[2020-05-04] MEDS ORDERED: SIMETHICONE 80 MG CHEWABLE PO PRN (13:33)
[2020-05-04] MEDS ORDERED: METOCLOPRAMIDE 5 MG/ML 2 ML VIAL IVP PRN (13:33)
[2020-05-04] MEDS ORDERED: diphenhydrAMINE 50 MG/ML 1 ML VIAL IVP PRN ×2 (13:33)
--- NOTE | 2020-05-04 13:33 | P.OP ---
Date of Procedure: 05/04/20 Preoperative Diagnosis: 39-2/7 weeks intrauterine , low-lying placenta to be treated as placenta previa, undesired fertility Postoperative Diagnosis: Same, meconium-stained fluid, nuchal cord 1, left occiput transverse, normal- appearing tubes and ovaries. Procedure(s) Performed: Primary low transverse section and tubal ligation with Filshie clips Anesthesia: spinal Surgeon: Consuelo Roque [employer] Canning Leader #1: Joe Allen Estimated Blood Loss (ml): 500 IV fluids (ml): 600 Urine output (ml): 1,000 Pathology: none sent Condition: stable Disposition: PACU Operative Findings: Liveborn female , scores 9 and 9, 7 lbs. 2 oz., 3220 g, nuchal cord 1, meconium-stained fluid, left occiput transverse position. Description of Procedure: Patient is brought to the operating suite where a spinal with Duramorph is placed. She is then put in the dorsal supine position with left lateral uterine displacement. Antibiotics are given. The appropriate timeout is performed to assure proper patient and procedural identification. The abdomen is prepped and draped in usual sterile fashion. The analgesia is checked and noted to be adequate. A low transverse skin incision is made in this is carried down to subcutaneous tissue to the fascia. Fascia is isolated, scored, extended bilaterally with curved Kern scissors. Peritoneum is next identified and incise d, there is no bowel or bladder involvement. Bladder blade is placed over the dome of the bladder and at all times the bladder is Well from the operative field to avoid bladder and/or ureteral injury. A low transverse uterine incision is made in this is extended with blunt dissection. Artificial amniorrhexis reveals meconium-stained fluid. 's head is delivered in the left occiput transverse position. There is a nuchal cord 1 that was reduced. The oropharynx, nasopharynx, and external nares are all bulb suctioned. Patient is officially delivered a liveborn female at 1310 ho urs. Umbilical cord is doubly clamped and ligated, she is handed to waiting nurses for evaluation where scores of 9 and 9 at one and 5 minutes respectively are given. The placentas delivered manually, it is inspected, noted to be intact and meconium-stained, with trivascular cord at 1311 hours. Uterus is then massaged and externalized. It is swept clean with a sterile sponge to avoid any retained products of conception. Uterus is closed in a single full-thickness stitch of 0 Vicryl for excellent reapproximation. Bilateral tubes are inspected, Filshie clips are placed in the isthmic portion of the tubes bilaterally with care to traverse the entire diameter of the tube into the mesal salpinx. Ovaries appear normal. Abdomen is suctioned with suction on guard posterior to the uterus. Uterus is gently placed back into the abdominal cavity. Bilateral gutters are inspected and cleaned. Peritoneum is allowed to close by secondary intention. Fascia is closed in a running stitch of 0 Vicryl with over ligation in the midline. Subcutaneous tissue is irrigated, clean and dry. It is reapproximated with 3-0 Vicryl in a running stitch. 4-0 undyed Vicryl issues for final skin c losure. All sponge needle and enhancement counts are correct at the end of the procedure. Uterus is massaged. Steri-Strips and Mastisol are applied to the wound and a dressing is applied. Total estimated blood loss 500 mL, fluid replacement 600 mL, urine output 1000 mL of clear yellow urine. Patient is brought back to recovery room in excellent condition with stable vital signs including a blood pressure 106/68, pulse 90.
[2020-05-04] MEDS: ACETAMINOPHEN TAB 325 MG TAB PO PRN (16:54)
[2020-05-04] MEDS: KETOROLAC 15 MG/ML 1 ML VIAL IVP PRN (19:47)
[2020-05-04] MEDS: SENNOSIDES-DOCUSATE SODIUM 1 EACH TAB PO SCH (23:08)
[2020-05-05] MEDS: IBUPROFEN 600 MG TAB PO PRN ×3 (01:40→22:38)
[2020-05-05] MEDS: KETOROLAC 15 MG/ML 1 ML VIAL IVP PRN ×2 (03:52→08:47)
--- NOTE | 2020-05-05 06:48 | P.PN ---
Progress Note - Text Progress Note Date: 05/05/20 Bethany is postop day 1 from a section with spinal Duramorph. She reports that she is doing pretty well. She is able to move her lower extremities without any weakness. She denies any bowel or bladder incontinence and has return of bowel function. She denies any significant pain.
--- NOTE | 2020-05-05 07:30 | P.PN ---
Subjective Progress Note Date: 05/05/20 Principal diagnosis: Postoperative day #1 Slept well. Positive flatus. No complaints. Objective - Vital Signs Vital signs: Vital Signs Temp 97.9 F 05/05/20 04:00 Pulse 80 05/05/20 04:00 Resp 20 05/05/20 04:00 BP 116/66 05/05/20 04:00 Pulse Ox 99 05/05/20 00:00 Intake & Output 05/04/20 05/05/20 05/05/20 18:59 06:59 18:59 Intake Total 300 Output Total 3700 1500 Balance -3400 -1500 Weight 82.1 kg Intake: Oral 300 Output: Urine 3200 1500 Uretheral (Cho) 400 Estimated Blood Loss 500 Other: Voiding Method Indwelling Catheter # Voids 1 - Constitutional General appearance: Present: average body habitus, cooperative - EENT Eyes: Present: PERRLA ENT: Present: hearing grossly normal - Neck Neck: Present: normal ROM - Respiratory Respiratory: bilateral: CTA - Cardiovascular Rhythm: regular - Gastrointestinal General gastrointestinal: Present: normal bowel sounds - Integumentary Integumentary: Present: normal - Neurologic Neurologic: Present: CNII-XII intact - Musculoskeletal Musculoskeletal: Present: gait normal - Psychiatric Psychiatric: Present: A&O x's 3, appropriate affect, intact judgment & insight - Labs CBC & Chem 7: 05/04/20 10:32 Labs: Abnormal Lab Results - Last 24 Hours (Table) 05/04/20 Range/Units 10:32 WBC 14.2 H (3.8-10.6) k/uL RBC 3.56 L (3.80-5.40) m/uL Hgb 11.3 L (11.4-16.0) gm/dL Hct 33.8 L (34.0-46.0) % Neutrophils # 9.5 H (1.3-7.7) k/uL Assessment and Plan Assessment: Doing well postoperative day #1 Plan: Continue postoperative care. Advanced diet and activity. Made discontinue IV. Anticipating discharge home tomorrow. Time with Patient: Less than 30
[2020-05-05 07:33] LABS: Basophils # (A) 0.1 k/uL (0-0.2); Basophils % (A) 1 %; Eosinophils # (A) 0.3 k/uL (0-0.7); Eosinophils % (A) 2 %; HCT 29.7 % (34.0-46.0); Lymphocytes # (A) 4.2 k/uL (1.0-4.8); Lymphocytes % (A) 25 %; MCH 32.5 pg (25.0-35.0); MCHC 33.6 g/dL (31.0-37.0); MCV 96.7 fL (80.0-100.0); Mean Platelet Volume 9.7; Monocytes # (A) 1.1 k/uL (0-1.0); Monocytes % (A) 7 %; Neutrophils # (A) 10.6 k/uL (1.3-7.7); Neutrophils % (A) 64 %; Platelet Count 241 k/uL (150-450); RBC 3.07 m/uL (3.80-5.40); WBC 16.5 k/uL (3.8-10.6)
[2020-05-05] MEDS: SENNOSIDES-DOCUSATE SODIUM 1 EACH TAB PO SCH ×2 (08:47→19:33)
[2020-05-05] MEDS: ACETAMINOPHEN TAB 325 MG TAB PO PRN ×2 (13:55→19:33)
[2020-05-06] MEDS: ACETAMINOPHEN TAB 325 MG TAB PO PRN ×2 (01:18→07:56)
[2020-05-06] MEDS: IBUPROFEN 600 MG TAB PO PRN (04:58)
[2020-05-06] MEDS: SENNOSIDES-DOCUSATE SODIUM 1 EACH TAB PO SCH (07:55)
[2020-05-06 07:59] VITALS: BP 130/91; PULSE 83; RESP 17; TEMP 97.9
--- NOTE | 2020-05-06 09:13 | P.DS ---
Providers Date of admission: 05/04/20 09:46 Expected date of discharge: 05/06/20 Attending physician: Consuelo Roque Primary care physician: [place] Hospital Course: This is a 25-year-old white female 2 para 1001 EDC 05/09/2020 at 39-2/7 weeks' gestation. Patient presented for section for low-lying placenta and undesired fertility. Recommendation was not to attempt a vaginal with placental location 1 cm from the cervical os. Please see dictated history and physical for details. Patient underwent a primary low transverse section and tubal ligation on 05/04/2020. She did well, giving to a liveborn female with scores of 9 and 9 at one and 5 minutes respectively. There was a nuchal cord 1, estimated blood loss 500 mL's. Infant weighed 7 lbs. 2 oz. or 3220 g. Please see my dictated operative note for details. This morning the patient is doing well, she is voiding, ambulate in, passing flatus without difficulty, and has had a bowel movement as well. Vital signs are stable and she has remained afebrile. Incision is clean and dry, intact, Steri-Strips applied. Extremities are negative for edema. Breast-feeding is going well. is doing well. Patient is judged be in excellent condition for discharge home. She will follow-up with me in the office in 2 weeks. I have reminded her no intercourse, tampons or douching. She will use Tylenol No. 3 one every 4-6 hours as needed for pain. A prescription for 20 is provided. She will call with any fevers shakes or chills, foul smelling or copious lochia, with the passage of large blood clots, with any pain not alleviated by this regime, or indeed with any concerns. Assessment: Doing well postoperative day number two Patient Condition at Discharge: Good Plan - Discharge Summary Discharge Rx Participant: Yes New Discharge Prescriptions: No Action Ondansetron HCl [Zofran] 4 mg PO Q8H PRN PRN Reason: Nausea And Vomiting Discharge Medication List Ondansetron HCl [Zofran] 4 mg PO Q8H PRN 04/29/20 [History] Follow up Appointment(s)/Referral(s): Consuelo Roque MD [STAFF PHYSICIAN] - 2 Weeks Discharge Disposition: HOME SELF-CARE
== END 2020-05-06 11:05 | disposition home or self-care (01) | DRG 785 ==
LOC: 4FBP 09:46
PROVIDERS: ADMIT Obstetrics & Gynecology; ATTEND Obstetrics & Gynecology
PROC: 0UL70CZ Occlusion of Bilateral Fallopian Tubes with Extraluminal Device, Open Approach (ICD-10-PCS; 2020-05-04)
PROC: 10D00Z1 Extraction of Products of Conception, Low, Open Approach (ICD-10-PCS; principal; 2020-05-04 12:00)
DX: O44.23 Partial placenta previa NOS or without hemorrhage, third trimester (principal); Z37.0 Single live birth; Z3A.39 39 weeks gestation of pregnancy; Z30.2 Encounter for sterilization; O99.344 Other mental disorders complicating childbirth; J45.909 Unspecified asthma, uncomplicated; O99.52 Diseases of the respiratory system complicating childbirth; O99.334 Smoking (tobacco) complicating childbirth; O69.81X0 Labor and delivery complicated by cord around neck, without compression, not applicable or unspecified; O77.0 Labor and delivery complicated by meconium in amniotic fluid; F32.9 Major depressive disorder, single episode, unspecified; K21.9 Gastro-esophageal reflux disease without esophagitis; F17.210 Nicotine dependence, cigarettes, uncomplicated; F20.9 Schizophrenia, unspecified; F43.10 Post-traumatic stress disorder, unspecified; Z88.5 Allergy status to narcotic agent; Z88.8 Allergy status to other drugs, medicaments and biological substances
CPT/HCPCS: 85025; 86850; 86900; 86901

== ENCOUNTER 2020-06-26 22:21 | Emergency (ER) | payer OTHER ==
--- NOTE | 2020-06-26 23:11 | ED ---
General Adult HPI - General Chief complaint: Upper Respiratory Infection Stated complaint: Congestion,Wants COVID Test Time Seen by Provider: 06/26/20 22:35 Source: patient Mode of arrival: ambulatory Limitations: no limitations - History of Present Illness Initial comments: 25-year-old male presents to emergency Department with a chief complaint of cou gh and congestion. Patient reports developing generalized myalgias and fatigue about 2 weeks ago. Patient also reports a nonproductive cough with exertional dyspnea which she states is typical when her asthma is exacerbated. Patient reports she feels like she is having asthma exacerbation but a mild case. Patient also reports a sore throat, otalgia and clear bilateral rhinorrhea. States she is a daily is tobacco smoker. She denies any chest pain back pain abdominal pain nausea vomiting or diarrhea. - Related Data Home Medications Medication Instructions Recorded Confirmed Albuterol Sulfate [Proair Hfa] 2 puff INHALATION RT-Q4H PRN 06/26/20 06/26/20 Pantoprazole Sodium [Protonix] 40 mg PO DAILY 06/26/20 06/26/20 Ysn-Gynb-Calyu Acid 1 cap PO DAILY 06/26/20 06/26/20 [-U Capsule (formulary)] Venlafaxine HCl ER [Effexor Xr] 75 mg PO DAILY 06/26/20 06/26/20 Venlafaxine HCl ER [Effexor Xr] 150 mg PO DAILY 06/26/20 06/26/20 clonazePAM 0.5 - 1 mg PO BID PRN 06/26/20 06/26/20 risperiDONE 2 mg PO BID 06/26/20 06/26/20 Previous Rx's Medication Instructions Recorded predniSONE 50 mg PO DAILY #5 tab 06/26/20 Allergies Allergy/AdvReac Type Severity Reaction Status Date / Time adhesive AdvReac Unknown Rash/Hives, Verified 06/26/20 23:08 Sores gabapentin AdvReac Migraine Verified 06/26/20 23:08 hydrocodone [From [place]] AdvReac Nausea & Verified 06/26/20 23:08 Vomiting/HALLUCINATIONS/migraine Review of Systems ROS Statement: Those systems with pertinent positive or pertinent negative responses have been documented in the HPI. ROS Other: All systems not noted in ROS Statement are negative. Past Medical History Past Medical History: Asthma, GERD/Reflux, Osteoarthritis (OA) Additional Past Medical History / Comment(s): IBS/CONSTIPATION, MIGRAINES, HIATAL HERNIA, PILONIDAL CYST, alopecia, History of Any Multi-Drug Resistant Organisms: None Reported Past Surgical History: Section, Tonsillectomy Additional Past Surgical History / Comment(s): EGDs/colonoscopies, stye removed from L eye., STATES LAPRASCOPIC SURGERY FOR LESIONS & CYSTS ON UTERUS AND OVARIES, pylonidal cyst removal, Past Anesthesia/Blood Transfusion Reactions: No Reported Reaction Past Psychological History: Anxiety, Depression, PTSD, Schizophrenia Smoking Status: Current every day smoker Past Alcohol Use History: None Reported Past Drug Use History: Marijuana - Past Family History Sister(s) Family Medical History: Fibromyalgia Mother Additional Family Medical History / Comment(s): Mother has osteoporosis, migraines, depression, anxiety and ovarian cysts. Father History Unknown: Yes Family Medical History: Unable to Obtain Additional Family Medical History / Comment(s): Pt does not know paternal father. General Exam Limitations: no limitations General appearance: alert, in no apparent distress, obese Head exam: Present: atraumatic, normocephalic, normal inspection Eye exam: Present: normal appearance, PERRL, EOMI Pupils: Present: normal accommodation ENT exam: Present: normal exam, normal oropharynx, mucous membranes moist, TM's normal bilaterally, normal external ear exam Neck exam: Present: normal inspection, full ROM. Absent: tenderness Respiratory exam: Present: normal lung sounds bilaterally. Absent: respiratory distress, wheezes, rales, rhonchi, stridor, chest wall tenderness, accessory muscle use Cardiovascular Exam: Present: regular rate, normal rhythm, normal heart sounds. Absent: systolic murmur GI/Abdominal exam: Present: soft. Absent: distended, tenderness, guarding, rebound, rigid Extremities exam: Present: normal inspection, full ROM, normal capillary refill. Absent: tenderness, pedal edema, joint swelling Back exam: Present: normal inspection, full ROM. Absent: tenderness, CVA tenderness (R), CVA tenderness (L) Neurological exam: Present: alert, oriented X3, normal gait Psychiatric exam: Present: normal affect, normal mood Skin exam: Present: warm, dry, intact, normal color Course Vital Signs 06/26/20 22:24 Temperature 97.8 F Pulse Rate 86 Respiratory 20 Rate Blood Pressure 115/73 O2 Sat by Pulse 99 Oximetry Medical Decision Making - Medical Decision Making 25-year-old female presents to the emergency department with a chief complaint of cough and congestion. On physical examination, patient does not appear to be in any respiratory distress. She is resting comfortably in bed and pulling on her phone. Vital signs are within normal limits. S covid-19 positive. She did request a steroid course because she feels as if her asthma is exacerbated. I will give her a 5 day course of prednisone. Advised to continue using her albuterol inhaler. Advised her to take Tylenol for fever. Self-isolation protocol. Strict return parameters were thoroughly discussed patient was understanding. Case discussed with - Lab Data Lab Results 06/26/20 Range/Units 22:28 Coronavirus (PCR) Detected A (Not Detectd) Disposition Clinical Impression: COVID-19 Disposition: HOME SELF-CARE Condition: Stable Instructions (If sedation given, give patient instructions): Coronavirus Disease 2019 (COVID-19) Additional Instructions: Please return to the Emergency Department if symptoms worsen or any other concerns. Prescriptions: predniSONE 50 mg PO DAILY #5 tab Is patient prescribed a controlled substance at d/c from ED?: No Referrals: Steph Cabezas MD [Primary Care Provider] - 1-2 days Time of Disposition: 23:13
[2020-06-26 23:29] VITALS: BP 116/78; PULSE 80; RESP 16; TEMP 98.2
== END 2020-06-26 23:28 | disposition home or self-care (01) ==
LOC: EC 22:21
DX: U07.1 COVID-19 (principal); J45.909 Unspecified asthma, uncomplicated; K21.9 Gastro-esophageal reflux disease without esophagitis; F41.9 Anxiety disorder, unspecified; F32.9 Major depressive disorder, single episode, unspecified; F20.9 Schizophrenia, unspecified; F17.200 Nicotine dependence, unspecified, uncomplicated; Z79.899 Other long term (current) drug therapy; Z91.048 Other nonmedicinal substance allergy status; Z88.5 Allergy status to narcotic agent; Z88.8 Allergy status to other drugs, medicaments and biological substances
CPT/HCPCS: 87635; 99283

== ENCOUNTER 2020-10-11 16:49 | Emergency (ER) | payer OTHER ==
--- NOTE | 2020-10-11 17:44 | ED ---
General Adult HPI - General Chief complaint: Urogenital Stated complaint: Urogenital Time Seen by Provider: 10/11/20 16:56 Source: patient Mode of arrival: ambulatory Limitations: no limitations - History of Present Illness Initial comments: 25 year-old female patient presents to the emergency department for STI check. Patient states that she feels like she has trichomonas. States she had it last June before she got . States she remained celibate throughout her and started having intercourse with the same partner again a few weeks ago after delivery and now feels like she has the infection back. Her partner was never treated for trichomonas. Reports "green" vaginal discharge and itching. Reports dysuria as well. States she has intermittent pelvic discomfort. She denies fever or chills. Denies back or flank pain. States she has her tubes tied. - Related Data Home Medications Medication Instructions Recorded Confirmed Albuterol Sulfate [Proair Hfa] 2 puff INHALATION RT-Q4H PRN 06/26/20 06/26/20 Biotin 10,000 mcg PO DAILY 06/26/20 06/26/20 Pantoprazole Sodium [Protonix] 40 mg PO DAILY 06/26/20 06/26/20 Uaw-Gbon-Ulrdo Acid 1 cap PO DAILY 06/26/20 06/26/20 [-U Capsule (formulary)] Venlafaxine HCl ER [Effexor Xr] 75 mg PO DAILY 06/26/20 06/26/20 Venlafaxine HCl ER [Effexor Xr] 150 mg PO DAILY 06/26/20 06/26/20 clonazePAM 0.5 - 1 mg PO BID PRN 06/26/20 06/26/20 risperiDONE 2 mg PO BID 06/26/20 06/26/20 Previous Rx's Medication Instructions Recorded predniSONE 50 mg PO DAILY #5 tab 06/26/20 Fluconazole [Diflucan] 150 mg PO ONCE #2 tab 10/11/20 Allergies Allergy/AdvReac Type Severity Reaction Status Date / Time adhesive AdvReac Unknown Rash/Hives, Verified 10/11/20 16:54 Sores gabapentin AdvReac Migraine Verified 10/11/20 16:54 hydrocodone [From [place]] AdvReac Nausea & Verified 10/11/20 16:54 Vomiting/HALLUCINATIONS/migraine Review of Systems ROS Statement: Those systems with pertinent positive or pertinent negative responses have been documented in the HPI. ROS Other: All systems not noted in ROS Statement are negative. Past Medical History Past Medical History: Asthma, GERD/Reflux, Osteoarthritis (OA) Additional Past Medical History / Comment(s): IBS/CONSTIPATION, MIGRAINES, HIATAL HERNIA, PILONIDAL CYST, alopecia, History of Any Multi-Drug Resistant Organisms: None Reported Past Surgical History: Section, Tonsillectomy Additional Past Surgical History / Comment(s): EGDs/colonoscopies, stye removed from L eye., STATES LAPRASCOPIC SURGERY FOR LESIONS & CYSTS ON UTERUS AND OVARIES, pylonidal cyst removal, Past Anesthesia/Blood Transfusion Reactions: No Reported Reaction Past Psychological History: Anxiety, Depression, PTSD, Schizophrenia Smoking Status: Current every day smoker Past Alcohol Use History: None Reported Past Drug Use History: Marijuana - Past Family History Sister(s) Family Medical History: Fibromyalgia Mother Additional Family Medical History / Comment(s): Mother has osteoporosis, rory ceferino, depression, anxiety and ovarian cysts. Father History Unknown: Yes Family Medical History: Unable to Obtain Additional Family Medical History / Comment(s): Pt does not know paternal father. General Exam Limitations: no limitations General appearance: alert, in no apparent distress, other (Physical well- developed, well-nourished adult female patient in no acute distress. Vital signs upon presentation are temperature 97.8F, pulse 86, respirations 16, blood pressure 113/74, pulse ox 99% on room air.) Eye exam: Present: normal appearance, PERRL, EOMI. Absent: scleral icterus, conjunctival injection, periorbital swelling ENT exam: Present: normal exam, normal oropharynx, mucous membranes moist Respiratory exam: Present: normal lung sounds bilaterally. Absent: respiratory distress, wheezes, rales, rhonchi, stridor Cardiovascular Exam: Present: regular rate, normal rhythm, normal heart sounds. Absent: systolic murmur, diastolic murmur, rubs, gallop, clicks GI/Abdominal exam: Present: soft, normal bowel sounds. Absent: distended, tenderness, guarding, rebound, rigid External exam: Present: normal external exam Speculum exam: Present: vaginal discharge (thick, stringy, white) By manual exam: Present: normal by manual exam Neurological exam: Present: alert, oriented X3, CN II-XII intact Psychiatric exam: Present: normal affect, normal mood Skin exam: Present: warm, dry, intact, normal color. Absent: rash Course Vital Signs 10/11/20 16:52 Temperature 97.8 F Pulse Rate 86 Respiratory 16 Rate Blood Pressure 113/74 O2 Sat by Pulse 99 Oximetry Medical Decision Making - Medical Decision Making 25 year-old female patient presents to the emergency department for evaluation of vaginal discharge, itching, and dysuria. Physical exam did reveal thick, stringy, white discharge. No cervical erythema. Adnexal exam normal. Trichomonas was negative. She will be discharged with treatment for possible yeast infection. She was given IM rocephin and azithromycin pending genital cultures. I did discuss findings and results with the patient. She is agreeable with this plan. She is instructed follow-up with her primary care physician for recheck in 1-2 days. Return for any new, worsening, or concerning symptoms. Case discussed with my attending Dr. Huang. - Lab Data Lab Results 10/11/20 10/11/20 10/11/20 Range/Units 17:33 17:33 17:36 Urine Color Yellow Urine Appearance Clear (Clear) Urine pH 6.5 (5.0-8.0) Ur Specific [place] 1.015 (1.001-1.035) Urine Protein Negative (Negative) Urine Glucose (UA) Negative (Negative) Urine Ketones Negative (Negative) Urine Blood Negative (Negative) Urine Nitrite Negative (Negative) Urine Bilirubin Negative (Negative) Urine Urobilinogen <2.0 (<2.0) mg/dL Ur Leukocyte Esterase Trace H (Negative) Urine RBC <1 (0-5) /hpf Urine WBC 4 (0-5) /hpf Ur Squamous Epith Cells 5 H (0-4) /hpf Urine Bacteria Rare H (None) /hpf Urine Mucus Rare H (None) /hpf Urine HCG, Qual Not Detected (Not Detectd) Trichomonas Ag (Rapid) Negative (Negative) Disposition Clinical Impression: Vaginal discharge Disposition: HOME SELF-CARE Condition: Good Instructions (If sedation given, give patient instructions): Yeast Infection (ED), Vaginal Discharge (ED) Additional Instructions: Take medication as directed. Follow up with primary care physician for recheck in 1-2 days. Return for any new, worsening, or concerning symptoms. Prescriptions: Fluconazole [Diflucan] 150 mg PO ONCE #2 tab Is patient prescribed a controlled substance at d/c from ED?: No Referrals: Steph Cabezas MD [Primary Care Provider] - 1-2 days Time of Disposition: 18:41
[2020-10-11 17:52] LABS: Appearance,Urine Clear (Clear); Bacteria,Urine Rare /hpf; Bilirubin,Urine Negative (Negative); Blood,Urine Negative (Negative); Color,Urine Yellow; Glucose,Urine (UA) Negative (Negative); Ketones,Urine Negative (Negative); Leukocyte Esterase,Urine Trace (Negative); Mucus,Urine Rare /hpf; Nitrite,Urine Negative (Negative); PH, Urine 6.5 (5.0-8.0); Protein,Urine Negative (Negative); RBC,Urine <1 /hpf (0-5); Specific Gravity,Urine 1.015 (1.001-1.035); Squamous Epithelial Cell,Urine 5 /hpf (0-4); Urobilinogen,Urine <2.0 mg/dL (<2.0); WBC,Urine 4 /hpf (0-5)
[2020-10-11] MEDS ORDERED: cefTRIAXone 1,000 MG VIAL (IM USE) IM STA (18:39)
[2020-10-11] MEDS ORDERED: AZITHROMYCIN 500 MG TAB PO STA (18:39)
[2020-10-11] MEDS ORDERED: FLUCONAZOLE 100 MG TAB PO ONE (18:45)
[2020-10-11 19:43] VITALS: BP 122/65; PULSE 75; RESP 18; TEMP 98.5
== END 2020-10-11 19:30 | disposition home or self-care (01) ==
LOC: EC 16:49
DX: N89.8 Other specified noninflammatory disorders of vagina (principal); R30.0 Dysuria; F17.200 Nicotine dependence, unspecified, uncomplicated; J45.909 Unspecified asthma, uncomplicated; K21.9 Gastro-esophageal reflux disease without esophagitis; M19.90 Unspecified osteoarthritis, unspecified site; Z79.52 Long term (current) use of systemic steroids; Z79.899 Other long term (current) drug therapy; Z88.8 Allergy status to other drugs, medicaments and biological substances; Z88.5 Allergy status to narcotic agent; Z91.09 Other allergy status, other than to drugs and biological substances
CPT/HCPCS: 81001; 81025; 87808; 87491; 87591; 87070; 99283; 96372; J0696